=== PATIENT | male | born 1940 | race Caucasian/White ===

== ENCOUNTER → 2018-04-03 | Day surgery (SDC) | payer OTHER ==
[~2018-04-03] VITALS: Ht 175.3 cm; Wt 91.9 kg
[~2018-04-03] MED LIST: AMLO10TA2 PO; BACITRACIN TOP OINT 15 GM TUBE ONE; BENA5TAB PO; BUPIVACAINE HCL PF 0.5% 30 ML VIAL ONE; CHLORHEXIDINE GLUCONATE 2 % 1 PACK (2 CLOTHS) TOPICAL PRN; DO NOT ADM ANY ANTICOAGULANT DRUGS PRN; GLIP5TAB8 PO; HYDR12.57 PO; LACTATED RINGER'S 1000 ML IV PRN; LIDOCAINE HCL 1% PF 5 ML SYRINGE OTHER ONE; LIDOCAINE HCL 2% 20 ML VIAL ONE; METF500T PO; METOPROLOL TARTRATE 25 MG TAB PO PRN; MIDAZOLAM HCL 2 MG/2 ML VIAL ONE; NEOMYCIN/POLYMYXIN 1 ML G.U. IRRIGANT ONE; POVIDONE IODINE 5% (ANTISEPSIS KIT) 4 APPLICATIONS EACH NARE PRN; PROPOFOL 200 MG/20 ML AMP IV ONE; SITA1TAB2 PO; SODIUM CHLORID 0.9% 500 ML IV PRN; ceFAZolin 2 GM/DEX PREMIX 50 ML IV SCH; ePHEDrine/NS 25 MG/5 ML SYRINGE IV ONE; oxyCODONE/ACETAMINOPHEN 5 MG/325 MG TAB ONE; oxyCODONE/ACETAMINOPHEN 5 MG/325 MG TAB PO PRN
--- NOTE | 2018-04-03 10:39 | HHI.PR ---
Immediate Post Op Note Procedure Date: Apr 03, 2018 Pre Op Diagnosis: 1. bunion left foot 2. 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 hammer toe left 2nd with toe contracture Post Op Diagnosis: same Surgeon: Troy Putnam DPM Building Maintenance Mechanic(s): Staff Procedure: 1. lapidus bunionectomy 2. 1st MTP joint silastic implant arthroplasty 3. denae osteotomy left 2nd 4. hammer toe correction left 2nd Findings: Consistent with diagnosis. 1st Met-cuneiform joint located, resected, and intermetatarsal angle reduced and fixated with arthrex locking plate fixation. Trilliant silastic implant placed after 1st MTP joint resected and reduction confirmed with c-arm. Dorsal incision over 2nd MTP joint and shortening denae osteotomy performed and fixated with 12mm arthrex screw fixation. PIP joint resected from 2nd toe and 1.5mm trimit pin placed to reduce flexion contracture of digit. Reduction of all deformity and acceptable alignment of foot confirmed with c- arm imaging followed by irrigation and deep closure with 3-0 and 2-0 vicryl suture, followed by 2-0 nylon suture. Dressing with xeroform, 4x4, abd pads x 3, cast padding, and short posterior splint, well padded. Left calf tourniquet x 139 minutes @250mmHg 2g ancef IV preop Nonweightbearing left foot. Follow up 1 week for dressing change Keep dressing/splint clean, dry, intact. Additional Information: n/a Complications: none Specimen(s) removed: none Estimated blood loss: 50mL Anesthesia: General, Local (20mL 0.5% marcaine plain) Drains: None IVF Tourniquet time (min at mmHg) 139min @250mmHg left calf Patient to: PACU Patient Condition: Good Implant/Devices: SEE IMPLANT LOG (if applicable) Date/Time of Procedure: SEE SURGICAL CARE RECORD Troy Putnam DPM Apr 03, 2018 10:39
--- NOTE | 2018-04-03 12:28 | RADRPT ---
EXAM DATE: 04/03/2018 12:19 PM EDT AGE/SEX: 77 years / Male INDICATIONS: Post Left bunionectomy CLINICAL DATA: This is the patient's subsequent encounter. Patient reports that signs and symptoms h ave been present for 1 day and indicates a pain score of 0/10. MEDICAL/SURGICAL HISTORY: None. None. COMPARISON: No prior exams available for comparison. FINDINGS: There is a surgical plate along the dorsal medial aspect of the first metatarsal and medial cuneiform bone. There is a screw extending from the base of the first metatarsal into the medial cuneiform bon e. There is a prosthetic joint at the first MTP joint. There is a screw seen at the second metatarsal head. The patient does appear to be a cast. Calcaneal spurs are seen at the Achilles and plantar apo neurosis attachment sites. There is air in the soft tissues around the first digit which is a typical postoperative finding. CONCLUSION: Postsurgical change with hardware appearing well placed as described above. Electronically signed by: Melecio Douglass MD 04/03/2018 12:26 PM EDT
--- NOTE | 2018-04-03 12:29 | RADRPT ---
EXAM DATE: 04/03/2018 12:19 PM EDT AGE/SEX: 77 years / Male INDICATIONS: ORIF left foot with bunionectomy. CLINICAL DATA: This is the patient's initial encounter. Patient reports that signs and symptoms have been present for 1 day and indicates a pain score of Nonresponsive. MEDICAL/SURGICAL HISTORY: Non-responsive. Non-responsive. COMPARISON: No prior exams available for comparison. FINDINGS: 3 images from the OR have been submitted. There is a plate along the dorsal medial aspect of the midf oot extending from the medial cuneiform bone to the mid first metatarsal. There is a single screw ext ending from the base of the first metatarsal into the medial cuneiform bone. There appears to be a pr osthetic joint at the first MTP joint. There is a screw seen at the second metatarsal head. The hardw are all appears well placed. The first digit does appear well aligned. CONCLUSION: Successful placement of hardware as described above. Electronically signed by: Melecio Douglass MD 04/03/2018 12:28 PM EDT
[2018-04-03 12:30] VITALS: BP 126/68; PULSE 71; RESP 18; TEMP 97.5; O2SAT 95
== END | disposition home or self-care (01) ==
LOC: HSDC 06:01
PROVIDERS: ATTEND Podiatrist Foot & Ankle Surgery
DX: M20.42 Other hammer toe(s) (acquired), left foot (principal); M20.12 Hallux valgus (acquired), left foot; M21.612 Bunion of left foot; M19.072 Primary osteoarthritis, left ankle and foot; I10 Essential (primary) hypertension
CPT/HCPCS: 01480; 28270; 28285; 28297; 73630; 76000; C1713; J0690; J2250; J3010; J7120

== ENCOUNTER 2018-05-08 17:53 | Inpatient (IN) ==
--- NOTE | 2018-05-08 23:25 | ED ---
HPI General Chief Complaint: Recheck/Abnormal Lab/Rx Stated Complaint: Dr Navarrete/Tabby foot Cellulitis Time Seen by Provider: 05/08/18 22:53 Source: patient and old records reviewed History of Present Illness HPI Narrative: Patient is a akz-fdijezx-vbowcloqg diabetic hypertensive man who had a bunion surgery April [address] Putnam c architect. Patient saw Dr. lane today she thought that his foot looked like it was getting infected he had already been on a course of p.o. antibiotics and now she felt the foot was looking cellulitic tender red warm. She sent him to the ER with a note saying please admit to medicine podiatry consult get IV antibiotics CBC blood cultures. Patient is wearing a walking boot healing he has redness and tenderness to the left foot great toe and the second toe are red tender around the incision site. No pus expressed there is no smell of pus progressively getting worse over the last few weeks seen by his c architect today sent for inpatient IV antibiotics pain is localized red tender warmth is the complaint Related Data Home Medications Medication Instructions Recorded Confirmed amlodipine 5 mg PO DAILY 05/08/18 05/08/18 ascorbic acid (vitamin C) [Vitamin 500 mg PO DAILY 05/08/18 05/08/18 C] aspirin 81 mg PO DAILY 05/08/18 05/08/18 benazepril 40 mg PO DAILY 05/08/18 05/08/18 glipizide 10 mg PO HS 05/08/18 05/08/18 hydrochlorothiazide 25 mg PO DAILY 05/08/18 05/08/18 metformin 1,000 mg PO HS 05/08/18 05/08/18 metformin 500 mg PO DAILY 05/08/18 05/08/18 plant stanol rebecca [Cholest Off] 900 mg PO DAILY 05/08/18 05/08/18 ropinirole mg PO HS 05/08/18 sitagliptin [Januvia] 100 mg PO DAILY 05/08/18 05/08/18 tamsulosin 0.4 mg PO DAILY 05/08/18 05/08/18 Allergies Allergy/AdvReac Type Severity Reaction Status Date / Time amoxicillin Allergy Severe NOSE BLEED Verified 04/03/18 06:29 clavulanic acid Allergy Severe NOSE BLEED Verified 04/03/18 06:29 Jlasqjr-Ret-Ags Reductase Allergy Severe pain, Verified 04/03/18 06:29 Inhibitor muscle weakness Review of Systems ROS Unobtainable All other systems reviewed negative except as stated in [facility] Social History Social History Substance History: No History of Abuse Second Hand Smoke Exposure: No Smoking Status: Former smoker How Often Do You Have a Drink Containing Alcohol: Never Recent Travel in [facility] within the Last 8 Weeks: No Recent Out of Country Travel within the Last 8 Weeks: No Exam Narrative Exam Narrative: GENERAL: AWAKE ALERT WELL APPEARING SKIN: Focused skin assessment warm/dry. HEAD: Atraumatic. Normocephalic. EYES: Pupils equal and round. No scleral icterus. No injection or drainage. ENT: No nasal bleeding or discharge. Mucous membranes pink and moist. NECK: Trachea midline. No JVD. CARDIOVASCULAR: Regular rate and rhythm. No murmur appreciated. RESPIRATORY: No accessory muscle use. Clear to auscultation. Breath sounds equal bilaterally. GASTROINTESTINAL: Abdomen soft, non-tender, nondistended. Hepatic and splenic margins not palpable. MUSCULOSKELETAL: No obvious deformities. REDNESS AND SWELLING AROUND INCISION AREA GREAT TOE AND SECOND TOE LEFT FOOT NEUROLOGICAL: Awake and alert. No obvious cranial nerve deficits. Motor grossly within normal limits. Normal speech. PSYCHIATRIC: Appropriate mood and affect; insight and judgment normal. Course Initial Documented Vital Signs Temperature 98.6 F 05/08/18 18:44 Pulse Rate 83 05/08/18 18:44 Respiratory Rate 16 05/08/18 18:44 Blood Pressure 129/71 05/08/18 18:44 Pulse Oximetry 95 05/08/18 18:44 Last Documented Vital Signs Temperature 98.6 F 05/08/18 18:44 Pulse Rate 80 05/09/18 02:09 Respiratory Rate 16 05/09/18 02:09 Blood Pressure 144/90 H 05/09/18 02:09 Pulse Oximetry 97 05/09/18 02:09 Medical Decision Making Lab Data Result diagrams: 05/08/18 23:40 05/08/18 23:40 Lab Results 05/08/18 05/08/18 05/08/18 Range/Units 23:40 23:40 23:40 WBC 14.2 H (4.0-11.0) th/mm3 RBC 5.02 (4.50-5.90) mil/mm3 Hgb 16.3 (13.0-17.0) gm/dL Hct 47.5 (39.0-51.0) % MCV 94.7 (80.0-100.0) fL MCH 32.4 (27.0-34.0) pg MCHC 34.2 (32.0-36.0) % RDW 14.0 (11.6-17.2) % Plt Count 479 H (150-450) th/mm3 MPV 8.4 (7.0-11.0) fL Neut % (Auto) 55.6 (16.0-70.0) % Lymph % (Auto) 30.4 (9.0-44.0) % [place] % (Auto) 10.1 H (0.0-8.0) % Eos % (Auto) 2.9 (0.0-4.0) % Baso % (Auto) 1.0 (0.0-2.0) % Neut # (Auto) 7.9 H (1.8-7.7) th/mm3 Lymph # (Auto) 4.3 (1.0-4.8) th/mm3 [place] # (Auto) 1.4 H (0.0-0.9) th/mm3 Eos # (Auto) 0.4 (0.0-0.4) th/mm3 Baso # (Auto) 0.1 (0.0-0.2) th/mm3 WBC Differential . Differential Comment Auto diff final ESR 4 (0-20) mm/hr Sodium 140 (136-145) meq/L Potassium 3.2 L (3.5-5.1) meq/L Chloride 100 (98-107) meq/L Carbon Dioxide 28.8 (21.0-32.0) meq/L Anion Gap 11 (5-15) meq/L BUN 18 (7-18) mg/dL Creatinine 1.35 H (0.60-1.30) mg/dL Estimated GFR 51 L (>89) mL/min Random Glucose 116 H (74-106) mg/dL Calcium 9.2 (8.5-10.1) mg/dL Total Bilirubin 1.1 H (0.2-1.0) mg/dL AST 15 (15-37) U/L ALT 24 (12-78) U/L Alkaline Phosphatase 50 (45-117) U/L C-Reactive Protein 0.40 H (0.00-0.30) mg/dL Total Protein 8.0 (6.4-8.2) g/dL Albumin 4.2 (3.4-5.0) g/dL Imaging Data Radiologist's impression: ITS Impressions Foot X-Ray 05/08/18 23:57 CONCLUSION: Postsurgical changes. No fracture Discharge Plan Discharge Disposition Patient Disposition: 30 Still Patient Discharge Details Diagnosis: Cellulitis of left foot Physicians Team ED Provider: Papo Akers Primary Care Provider: Colleen Dumont Attending Provider: Guerda Valente Other Providers: Brian Menendez Status ED Status: Admitted Patient
[2018-05-08 23:54] LABS: Baso # (Auto) 0.1 th/mm3 (0.0-0.2); Eos # (Auto) 0.4 th/mm3 (0.0-0.4); Eos % (Auto) 2.9 % (0.0-4.0); Hematocrit 47.5 % (39.0-51.0); Hemoglobin 16.3 gm/dL (13.0-17.0); Lymph # (Auto) 4.3 th/mm3 (1.0-4.8); Lymph % (Auto) 30.4 % (9.0-44.0); Mean Corpuscular HGB Conc 34.2 % (32.0-36.0); Mean Corpuscular Hemoglobin 32.4 pg (27.0-34.0); Mean Corpuscular Volume 94.7 fL (80.0-100.0); Mean Platelet Volume 8.4 fL (7.0-11.0); Mono # (Auto) 1.4 th/mm3 (0.0-0.9); Mono % (Auto) 10.1 % (0.0-8.0); Neut # (Auto) 7.9 th/mm3 (1.8-7.7); Neut % (Auto) 55.6 % (16.0-70.0); Platelet Count 479 th/mm3 (150-450); Red Blood Count 5.02 mil/mm3 (4.50-5.90); White Blood Count 14.2 th/mm3 (4.0-11.0)
[2018-05-09 00:25] LABS: Alanine Aminotransferase 24 U/L (12-78); Albumin 4.2 g/dL (3.4-5.0); Anion Gap 11 meq/L (5-15); Aspartate Aminotransferase 15 U/L (15-37); Blood Urea Nitrogen 18 mg/dL (7-18); Calcium 9.2 mg/dL (8.5-10.1); Carbon Dioxide 28.8 meq/L (21.0-32.0); Chloride 100 meq/L (98-107); Glomerular Filtration Rate 51 mL/min (>89); Glucose,Random 116 mg/dL (74-106); Potassium 3.2 meq/L (3.5-5.1); Sodium 140 meq/L (136-145)
[2018-05-09 00:27] LABS: Alkaline Phosphatase 50 U/L (45-117)
[2018-05-09] MEDS ORDERED: Acetaminophen 325 MG Tablet PO PRN (00:54)
[2018-05-09] MEDS ORDERED: Bisacodyl 10 MG Supp RECTAL PRN (00:54)
[2018-05-09] MEDS ORDERED: Dextrose 50% in Water 50 ML Vial IV.PUSH PRN (00:54)
[2018-05-09] MEDS ORDERED: Temazepam 15 MG Capsule PO PRN (00:54)
--- NOTE | 2018-05-09 01:01 | XR ---
EXAM DATE: 05/09/2018 12:31 AM EDT AGE/SEX: 77 years / Male INDICATIONS: Left foot inflammation post surgery. CLINICAL DATA: This is the patient's initial encounter. Patient reports that signs and symptoms have been present for 1 day and indicates a pain score of 5/10. MEDICAL/SURGICAL HISTORY: . Diabetes. . ORIF left foot. COMPARISON: [facility] [place], FOOT LEFT COMPLETE ([id number]), 04/03/2018. . FINDINGS: Views left foot obtained. Plate and screws along the first metatarsal. Metallic densities along the j oint of the first metatarsal phalangeal joint. There is a screw along the second metatarsal head fixa ting old fracture. Small plantar calcaneal spur. No hardware loosening or new fracture. CONCLUSION: Postsurgical changes. No fracture Electronically signed by: Ernst Aguilera MD 05/09/2018 12:59 AM EDT
[2018-05-09] MEDS: Sod Chloride 0.9% Inj 1,000 ML IV.CONT SCH ×3 (01:29→22:20)
[2018-05-09] MEDS ORDERED: Morphine Inj 4 MG/ML Vial IV.PUSH PRN (01:45)
[2018-05-09] MEDS ORDERED: Vancomycin Consult Pharmacy 1 EACH OTHER SCH (02:00)
--- NOTE | 2018-05-09 02:00 | P.HPIM ---
History of Present Illness Primary Care Physician: Colleen Dumont MD History of Present Illness: This is a 77-year-old male with a PMH of HTN and DM who was referred to the ER by his Teacher Physically Impaired, Dr. Putnam for admission due to postop left foot infection. Pt underwent Bunionectomy 04/03/18, states he has been on multiple antibiotic regimens since surgery for wound infection w/ minimal improvement, was referred to the ER for admission and IV Abx. Reports pain to left foot, worse w/ walking or wearing boot, pain is intermittent, moderate to severe, 8/10 , non-radiating. Denies fever or chills. On arrival, BP 129/71, HR 83, O2 sat 95% on RA, Afebrile. WBC 14.2. K+ 3.2. Creatinine 1.35, no previous labs for comparison. Foot X-ray with postsurgical changes, no acute fracture. - Diagnosis (1) Left foot infection (2) DM (diabetes mellitus) (3) Renal insufficiency Inpatient Certification: I certify that the inpatient services were ordered in accordance with Medicare regulations governing the order. This includes certification that hospital inpatient services are reasonable and necessary and in the case of services not specified as inpatient-only under 42 CFR 419.22(n), that they are appropriately provided as inpatient services in accordance to with the 2-midnight benchmark under 43 CFR 412.3(e) Estimated Total Length of Stay (Days): 2 Plans for Post Hospital Care: Not yet determined Review of Systems All other systems reviewed negative except as stated in HPI PMFSH - History History Provided By: Patient - Tobacco History Second Hand Smoke Exposure: No Tobacco Use In Past 30 Days: No Smoking Status: Former smoker - Alcohol History How Often Do You Have a Drink Containing Alcohol: Never - Substance Use History Substance History: No History of Abuse - Travel History Recent Travel in the [place] Within the Last 8 Weeks: No Recent Travel Out of the Country Within the Last 8 Weeks: No - Immunization History Tetanus Immunization: Unsure Hx Influenza Vaccine This Season: Yes Medications and Allergies Active Medications: Active Medications Acetaminophen (Tylenol) 650 mg PO Q4H PRN PRN Reason: FEVER/PAIN 1-2 Hydrocodone Bitart/Acetaminophen ([place] 5/325) 1 tab PO Q4H PRN PRN Reason: PAIN 3-5 Al Hydroxide/Mg Hydroxide (Milk Of Magnromero Liq) 30 ml PO Q12H PRN PRN Reason: Mild Constipation Amlodipine Besylate (Norvasc) 5 mg PO DAILY [facility] Ascorbic Acid (Vitamin C) 500 mg PO DAILY [facility] Bisacodyl (Dulcolax Supp) 10 mg RECTAL DAILY PRN PRN Reason: SEVERE CONSITIPATION Dextrose (D50w Vial) 50 ml IV.PUSH UNSCH PRN PRN Reason: PER HYPOGLYCEMIA PROTOCOL Glipizide (Glucotrol) 10 mg PO HS [facility] Glucagon (Glucagon Inj) 1 mg OTHER PRN PRN PRN Reason: for Hypoglycemia Protocol Sodium Chloride (Ns Inj) 1,000 mls @ 100 mls/hr IV.CONT .Q10H [facility] Last Admin: 05/09/18 01:29 Dose: 100 mls/hr Insulin Aspart (Novolog Insulin Suppl Scale Inj) 0 unit SQ ACHS [facility]; Protocol Lactulose (Lactulose Liq) 30 ml PO DAILY PRN PRN Reason: SEVERE CONSITIPATION Lisinopril (Prinivil) 40 mg PO DAILY [facility] Metoclopramide HCl (Reglan Inj) 5 mg IV.PUSH Q6HR PRN; Protocol PRN Reason: NAUSEA OR VOMITING Morphine Sulfate (Morphine Inj) 2 mg IV.PUSH Q4H PRN PRN Reason: PAIN 6-10 Senna/Docusate Sodium (Cary-Colace) 1 tab PO BID [facility] Sennosides (Senokot) 17.2 mg PO Q12H PRN PRN Reason: Moderate Constipation Sodium Chloride (Ns Flush) 2 ml IV.FLUSH BID [facility] Sodium Chloride (Ns Flush) 2 ml IV.FLUSH PRN PRN PRN Reason: FLUSH AFTER USING IV ACCESS Tamsulosin HCl (Flomax) 0.4 mg PO DAILY [facility] Temazepam (Restoril) 15 mg PO HS PRN PRN Reason: INSOMNIA Allergies Allergy/AdvReac Type Severity Reaction Status Date / Time amoxicillin Allergy Severe NOSE BLEED Verified 04/03/18 06:29 clavulanic acid Allergy Severe NOSE BLEED Verified 04/03/18 06:29 Gzdzfay-Gom-Byy Reductase Allergy Severe pain, Verified 04/03/18 06:29 Inhibitor muscle weakness Home Medications Medication Instructions Recorded Confirmed Type amlodipine 5 mg PO DAILY 05/08/18 05/08/18 History ascorbic acid (vitamin C) [Vitamin 500 mg PO DAILY 05/08/18 05/08/18 History C] aspirin 81 mg PO DAILY 05/08/18 05/08/18 History benazepril 40 mg PO DAILY 05/08/18 05/08/18 History glipizide 10 mg PO HS 05/08/18 05/08/18 History hydrochlorothiazide 25 mg PO DAILY 05/08/18 05/08/18 History metformin 1,000 mg PO HS 05/08/18 05/08/18 History metformin 500 mg PO DAILY 05/08/18 05/08/18 History plant stanol rebecca [Cholest Off] 900 mg PO DAILY 05/08/18 05/08/18 History ropinirole mg PO HS 05/08/18 History sitagliptin [Januvia] 100 mg PO DAILY 05/08/18 05/08/18 History tamsulosin 0.4 mg PO DAILY 05/08/18 05/08/18 History Exam Vital signs: Vital Signs 05/08/18 18:44 05/08/18 23:49 Temperature 98.6 F Pulse Rate 83 65 Respiratory Rate 16 16 Blood Pressure 129/71 121/73 Pulse Oximetry 95 95 Intake & Output 05/08/18 05/08/18 05/09/18 06:59 18:59 06:59 Weight 88.451 kg Narrative: PE: GENERAL: Pleasant elderly white male in no acute distress. at bedside. HEENT: PERRLA, EOMI. No scleral icterus or conjunctival pallor. No lid lag or facial droop. CARDIOVASCULAR: Regular rate and rhythm. No obvious murmurs to auscultation. No chest tenderness to palpation. RESPIRATORY: No obvious rhonchi or wheezing. Clear to auscultation. Breath sounds equal bilaterally. GASTROINTESTINAL: Abdomen soft, non-tender, nondistended. BS normal. MUSCULOSKELETAL: Extremities without clubbing, cyanosis, or edema. No obvious deformities. Left foot with bandage, redness/swelling to left great toe/2nd toe. NEUROLOGICAL: Awake, alert and oriented x4. No focal neurologic deficits. Moving both upper and lower extremities spontaneously. Results - Labs CBC & Chem 7: 05/08/18 23:40 05/08/18 23:40 Labs: Short CBC 05/08/18 Range/Units 23:40 WBC 14.2 H (4.0-11.0) th/mm3 Hgb 16.3 (13.0-17.0) gm/dL Hct 47.5 (39.0-51.0) % Plt Count 479 H (150-450) th/mm3 BMP 05/08/18 23:40 Sodium 140 Potassium 3.2 L Chloride 100 Carbon Dioxide 28.8 BUN 18 Creatinine 1.35 H Calcium 9.2 Liver Function 05/08/18 Range/Units 23:40 Total Bilirubin 1.1 H (0.2-1.0) mg/dL AST 15 (15-37) U/L ALT 24 (12-78) U/L Alkaline Phosphatase 50 (45-117) U/L Albumin 4.2 (3.4-5.0) g/dL - Imaging Impressions Foot X-Ray 05/08/18 23:57 CONCLUSION: Postsurgical changes. No fracture Caprini VTE Risk Assessment Caprini VTE Risk Assessment: Moderate/High Risk (score >= 2) VTE Mechanical Exception: LE injury/wound Caprini Risk Assessment Model: Point Value = 1 Point Value = 2 Point Value = 3 Point Value = 5 Age 41-60 Minor surgery BMI > 25 kg/m2 Swollen legs Varicose veins or History of unexplained or recurrent spontaneous Oral contraceptives or hormone replacement Sepsis (< 1 month) Serious lung disease, including pneumonia (< 1 month) Abnormal pulmonary function Acute myocardial infarction Congestive heart failure (< 1 month) History of inflammatory bowel disease Medical patient at bed rest Age 61-74 Arthroscopic surgery Major open surgery (> 45 min) Laparoscopic surgery (> 45 min) Malignancy Confined to bed (> 72 hours) Immobilizing plaster cast Central venous access Age >= 75 History of VTE Family history of VTE Factor V Leiden Prothrombin [id number] Lupus anticoagulant Anticardiolipin antibodies Elevated serum homocysteine Heparin-induced thrombocytopenia Other congenital or acquired thrombophilia Stroke (< 1 month) Elective arthroplasty Hip, pelvis, or leg fracture Acute spinal cord injury (< 1 month) Prophylaxis Regimen: Total Risk Factor Score Risk Level Prophylaxis Regimen 0-1 Low Early ambulation 2 Moderate Order ONE of the following: *Sequential Compression Device (SCD) *Heparin 5000 units SQ BID 3-4 Higher Order ONE of the following medications: *Heparin 5000 units SQ TID *Enoxaparin/Lovenox 40 mg SQ daily (WT < 150 kg, CrCl > 30 mL/min) *Enoxaparin/Lovenox 30 mg SQ daily (WT < 150 kg, CrCl > 10-29 mL/min) *Enoxaparin/Lovenox 30 mg SQ BID (WT < 150 kg, CrCl > 30 mL/min) AND/OR *Sequential Compression Device (SCD) 5 or more Highest Order ONE of the following medications: *Heparin 5000 units SQ TID (Preferred with Epidurals) *Enoxaparin/Lovenox 40 mg SQ daily (WT < 150 kg, CrCl > 30 mL/min) *Enoxaparin/Lovenox 30 mg SQ daily (WT < 150 kg, CrCl > 10-29 mL/min) *Enoxaparin/Lovenox 30 mg SQ BID (WT < 150 kg, CrCl > 30 mL/min) AND *Sequential Compression Device (SCD) Assessment and Plan - Assessment (1) Left foot infection Code(s): L08.9 - Local infection of the skin and subcutaneous tissue, unspecified Status: Acute (2) DM (diabetes mellitus) Code(s): E11.9 - Type 2 diabetes mellitus without complications Status: Acute (3) Renal insufficiency Code(s): N28.9 - Disorder of kidney and ureter, unspecified Status: Acute - Plan A/P: 1. Left Foot Infection: s/p Left Bunionectomy 04/03/[address] Putnam, w/ ongoing infection, failed outpatient tx on multiple antibiotics, WBC 11, sent to ER by Dr. Putnam for admission, IV Abx, start IV Vanc/Azactam, NPO for possible surgical intervention, analgesics/antiemetics as needed. Repeat labs in am. 2. DM: Sliding scale w/ Accu-Cheks, hold Metformin for now. 3. Renal Insufficiency: Creatinine 1.35, no previous labs for comparison, monitor I/O, IVF for hydration, repeat labs in am. 4. DVT Prophylaxis: Mechanical contraindication due to wound 5. Social work for d/c planning as needed 6. Case discussed w/ ER physician at length, labs/records/imaging reviewed by me.
[2018-05-09] MEDS ORDERED: Vancomycin Inj 1,500 MG in Sodium Chlor 0.9% Inj 500 ML IV.SIG ONE (02:30)
[2018-05-09] MEDS: Aztreonam Inj 2 GM in Sodium Chloride 0.9% Inj 100 ML IV.SIG SCH ×3 (02:43→22:05)
[2018-05-09] MEDS: Insulin NovoLOG Aspart Correctional Sugar Inj SQ SCH ×3 (08:16→21:54)
--- NOTE | 2018-05-09 09:01 | P.PNIM ---
Subjective Interval history: Reports no significant pain. Dr. Griffiths came in and saw him this morning. Wants to eat breakfast and take his morning medications. No other concerns at this time. No fevers or chills overnight. Physical Exam Vital signs: Vital Signs 05/08/18 18:44 05/08/18 23:49 05/09/18 02:09 Temperature 98.6 F Pulse Rate 83 65 80 Respiratory Rate 16 16 16 Blood Pressure 129/71 121/73 144/90 H Pulse Oximetry 95 95 97 05/09/18 05:52 05/09/18 07:00 Temperature Pulse Rate 85 82 Respiratory Rate 16 19 Blood Pressure 116/72 140/75 Pulse Oximetry 96 97 Intake & Output 05/08/18 05/09/18 05/09/18 18:59 06:59 18:59 Intake Total 615 / 615 Balance 615 / 615 Weight 88.451 kg Intake: IV 615 / 615 Azactam Inj 2 GM In NS Inj 100 100 / 100 ML @ 200 mls/hr IV.SIG Q8H RUBEN Rx#:[id number] Vancomycin Inj 1,500 MG In NS 515 / 515 Inj 500 ML @ 257.5 mls/hr IV. SIG ONCE ONE Rx#:[id number] Narrative: GENERAL: This is a well-nourished, well-developed patient, in no apparent distress. CARDIOVASCULAR: Regular rate and rhythm RESPIRATORY: Clear to auscultation. Breath sounds equal bilaterally. No wheezes , rales, or rhonchi. GASTROINTESTINAL: Abdomen soft, non-tender, nondistended. Normal active bowel sounds MUSCULOSKELETAL: Left foot small 2 cm x 3 cm open wound over surgical bunion area 2 cm x 2 cm wound along with second metatarsal with no active drainage, no significant erythema seen. NEURO: Alert & Oriented x4 to person, place, time, situation. Moves all ext x4 Results - Labs CBC & Chem 7: 05/08/18 23:40 05/08/18 23:40 Laboratory Results - last 24 hr 05/08/18 05/08/18 05/08/18 23:40 23:40 23:40 WBC 14.2 H RBC 5.02 Hgb 16.3 Hct 47.5 MCV 94.7 MCH 32.4 MCHC 34.2 RDW 14.0 Plt Count 479 H MPV 8.4 Neut % (Auto) 55.6 Lymph % (Auto) 30.4 [place] % (Auto) 10.1 H Eos % (Auto) 2.9 Baso % (Auto) 1.0 Neut # (Auto) 7.9 H Lymph # (Auto) 4.3 [place] # (Auto) 1.4 H Eos # (Auto) 0.4 Baso # (Auto) 0.1 WBC Differential . Differential Comment Auto diff final ESR 4 Sodium 140 Potassium 3.2 L Chloride 100 Carbon Dioxide 28.8 Anion Gap 11 BUN 18 Creatinine 1.35 H Estimated GFR 51 L POC Glucose Random Glucose 116 H Calcium 9.2 Total Bilirubin 1.1 H AST 15 ALT 24 Alkaline Phosphatase 50 C-Reactive Protein 0.40 H Total Protein 8.0 Albumin 4.2 05/09/18 08:05 WBC RBC Hgb Hct MCV MCH MCHC RDW Plt Count MPV Neut % (Auto) Lymph % (Auto) [place] % (Auto) Eos % (Auto) Baso % (Auto) Neut # (Auto) Lymph # (Auto) [place] # (Auto) Eos # (Auto) Baso # (Auto) WBC Differential Differential Comment ESR Sodium Potassium Chloride Carbon Dioxide Anion Gap BUN Creatinine Estimated GFR POC Glucose 177 H Random Glucose Calcium Total Bilirubin AST ALT Alkaline Phosphatase C-Reactive Protein Total Protein Albumin - Imaging Impressions Foot X-Ray 05/08/18 23:57 CONCLUSION: Postsurgical changes. No fracture Assessment and Plan - Assessment (1) Left foot infection Code(s): L08.9 - Local infection of the skin and subcutaneous tissue, unspecified Status: Acute (2) DM (diabetes mellitus) Code(s): E11.9 - Type 2 diabetes mellitus without complications Status: Acute (3) Renal insufficiency Code(s): N28.9 - Disorder of kidney and ureter, unspecified Status: Acute - Plan 1. Left Foot Infection: s/p Left Bunionectomy 04/03/[address] Putnam, w/ ongoing infection, failed outpatient tx on multiple antibiotics, sent to ER by Dr. Putnam for admission, continue with IV Abx, start IV Vanco/Azactam, seen by Dr. Griffiths who will hold off on surgical intervention at this time and follow the patient clinically for next 48 hours on IV antibiotics. Follow-up with wound and blood cultures. Restart diet today. 2. DM type II with diabetic foot infection: Sliding scale w/ Accu-Cheks, hold Metformin for now. 3. Renal Insufficiency with suspecting chronic kidney disease stage III: Creatinine 1.35, no previous labs for comparison, monitor I/O, IVF for hydration , repeat labs in am. 4. DVT Prophylaxis: Lovenox (2) DM (diabetes mellitus) Qualifiers: Diabetes mellitus type: type 2 Diabetes mellitus half-way insulin use: without half-way use Diabetes mellitus complication status: with skin complications Diabetes mellitus complication detail: with foot ulcer Qualified Code(s): E11.621 - Type 2 diabetes mellitus with foot ulcer; L97.509 - Non-pressure chronic ulcer of other part of unspecified foot with unspecified severity
[2018-05-09] MEDS: Lisinopril 20 MG Tablet PO SCH (10:41)
[2018-05-09] MEDS: hydroCHLOROthiazide 25 MG Tablet PO SCH (10:43)
[2018-05-09] MEDS: amLODIPine 5 MG Tablet PO SCH (10:43)
[2018-05-09] MEDS: Ascorbic Acid 500 MG Tablet PO SCH (10:45)
[2018-05-09] MEDS: Senna/Docusate Sodium 8.6/50 MG Tablet PO SCH ×2 (10:52→22:03)
[2018-05-09] MEDS: Enoxaparin Inj 40 MG/0.4 ML Syringe SQ SCH (10:52)
--- NOTE | 2018-05-09 13:57 | MB ---
cc: Marvin Diaz MD DATE: 05/09/2018 REQUESTING PHYSICIAN: Dr. Griffiths. REASON: Infection in postoperative period. HISTORY OF PRESENT ILLNESS: This is a 77-year-old white male who is status post foot reconstruction on 05/02/2018. The patient was recuperating from the surgery and wearing a boot on the left leg where the surgery was performed. He developed some redness on the left foot and he was given antibiotics by mouth and did not improve. He received a second round of antibiotic by mouth and again did not improve and he was evaluated by the commissary assistant and sent for evaluation at the emergency department and IV antibiotics. The patient has no complaints besides some pain in the left foot. He has no nausea, vomiting, fever, chills, or other complaints. He is awake and alert and oriented. The temperature is normal. White blood cell count is elevated at 14.2. An x-ray of the foot was performed and it shows postsurgical changes without fracture. The patient has a plate and screws along the first metatarsal and phalangeal joint and also there is a screw along the second metatarsal head. No hardware loosening was noted. PAST MEDICAL HISTORY: Diabetes mellitus, hypertension, otherwise unremarkable prior to procedure. ALLERGIES: AMOXICILLIN, CLAVULANIC ACID, STATINS, HMG-COA REDUCTASE INHIBITOR. MEDICATIONS: 1. Norvasc. 2. Vitamin C. 3. Aspirin. 4. Lovenox. 5. Hydrochlorothiazide. 6. Prinivil. 7. [place]-Colace. 8. Januvia. 9. Flomax. 10. Restoril SOCIAL HISTORY: No tobacco. No alcohol use. No illicit drugs. FAMILY HISTORY: Noncontributory. REVIEW OF REVIEW OF SYSTEMS: All systems have been reviewed and are negative. PHYSICAL EXAMINATION: GENERAL: Well-developed male who is in no acute distress. He is awake and alert and oriented. VITAL SIGNS: Temperature is 98.6, BP 138/81, respirations 16, heart rate 81. HEENT: Head is atraumatic. Extraocular movements grossly intact. Pupils reactive to light. No icterus. No conjunctival erythema. Oropharynx: Mucosa moist. No thrush. No visible lesions. NECK: Supple. No adenopathy. No swelling. LUNGS: Clear to auscultation. HEART: Regular S1 and S2. No audible murmurs. ABDOMEN: Bowel sounds present. Soft, nontender. RECTAL: Not performed. EXTREMITIES: The left foot has erythema from the base of the toes to about mid-foot at the dorsal aspect. The second toe has a dry ulcer crater at the dorsum and the dorsum of the second toe has erythema. Positive warmth. No drainage visible. There are 2 superficial ulcerations at the dorsum of the foot, along the base of the great toe backwards, approximately 2 inches long and another small ulcer approximately 1/2-inch back beyond the second toe. SKIN: No diffuse rash. NEUROLOGIC: No gross focal finding. PSYCHIATRIC: Patient is calm and cooperative. LABORATORY DATA: WBC 14.2, platelets 479, 55% neutrophils, 30% lymphocytes, 10% monocytes, 2% eosinophils, hemoglobin 16.3. Creatinine 1.35, BUN 18, sodium 140. AST 15, ALT 24. Blood cultures: No growth. Wound culture pending. IMPRESSION: 1. Cellulitis of the left foot. 2. Postoperative infection of the left foot. The patient is status post reconstructive surgery on the left foot and appears to have a wound infection. RECOMMENDATIONS: 1. Continue aztreonam. 2. Periodic vancomycin rhythmic. 3. Continue to hold periodic vancomycin while awaiting the cultures to determine whether or not to continue. 5. Monitor response to the antibiotic treatment and antibiotic adjustments depending on the culture results. Thank you for this consultation. I will follow the patient's progress with you and make further recommendations and followup if necessary. MD SILVANA Victor/RENEE , 01:21 PM , 01:55 PM WENDY
--- NOTE | 2018-05-09 19:20 | MB ---
cc: Brian GriffithsM TundeBrian Mccarty DPM DATE: 05/09/2018 REASON FOR CONSULTATION: Postoperative infection, possible osteomyelitis with abscess. HISTORY OF PRESENT ILLNESS: This is a pleasant 77-year-old male who is status post foot surgery per Dr. Flor Putnam. The patient had left foot surgery within the past 3-4 weeks, apparently had intermittent bouts of cellulitis and a significant decline of presentation of the surgical site. A debridement took place in the office and the patient was sent to the hospital for IV antibiotics with no obvious plan of removal of hardware at this point, given it is too early on in the postop period PAST MEDICAL HISTORY: Positive for diabetes, renal insufficiency, left foot infection in postoperative period. The patient is a former smoker. Denies alcohol. OUTPATIENT MEDICATIONS: Reviewed. INPATIENT MEDICATIONS: He is receiving antibiotic Vancomycin. ALLERGIES: AMOXICILLIN, CLAVULANIC ACID, STATIN, HMG-COA REDUCTASE INHIBITORS. PHYSICAL EXAMINATION: VITAL SIGNS: Temperature 98.3, pulse rate 76, respiratory rate 16, blood pressure 113/78. He is satting 96% on room air. GENERAL: This is an alert and oriented gentleman seen at bedside exhibiting nonlabored respirations. He is verbal, appropriate. Left lower extremity is examined. Pulses are palpable. Sensation decreased to light touch. There is noted to be a linear mixed fibrotic granular incision over the dorsal aspect of the second digit and first digit and first ray. There is minimal to moderate erythema that appears to be localized to the mathew-incision area. There is no fluctuance, no crepitus or instability. There is no gas within the tissue. There is good capillary refill time to the digits, right foot is free from any obvious ulceration. LABORATORY DATA: White blood cell 14.2, hemoglobin and hematocrit, 16/42, platelet count is 479. Chem-7: Sodium 140, 3.2, chloride 100, CO2 of 28.8. BUN is 18, creatinine 1.35, random glucose is 116. IMAGING STUDIES: X-rays reviewed: Intact first MPJ implant and plate and screw traversing the first metatarsal medial cuneiform joint. There is also a screw intact at the second metatarsal head. These are consistent with postsurgical changes. There is no obvious bony erosive process. ASSESSMENT AND PLAN: Left foot cellulitis postsurgical complication, possible infected hardware. A culture was taken. A Betadine swab to the wound edge. We will await clinical improvement and IV antibiotics as well as infectious disease consultation. At this time, it is not recommended to remove the hardware for it would severely compromise the surgery. Recommendation would be long-term IV antibiotics first. I communicated all of this with the patient's surgeon, Dr. Putnam, as I am covering her for she is going out of town. I will continue to advise. No plans for surgery at this point. RUBÉN Gresham/ , 06:56 PM , 07:19 PM
[2018-05-09] MEDS: glipiZIDE 10 MG Tablet PO SCH (22:19)
[2018-05-10] MEDS: Aztreonam Inj 2 GM in Sodium Chloride 0.9% Inj 100 ML IV.SIG SCH ×3 (03:13→22:12)
[2018-05-10] MEDS: Vancomycin Inj 1,500 MG in Sodium Chlor 0.9% Inj 500 ML IV.SIG SCH (03:13)
[2018-05-10 05:13] LABS: Baso # (Auto) 0.1 th/mm3 (0.0-0.2); Baso % (Auto) 0.9 % (0.0-2.0); Eos # (Auto) 0.6 th/mm3 (0.0-0.4); Eos % (Auto) 4.8 % (0.0-4.0); Hematocrit 46.4 % (39.0-51.0); Hemoglobin 15.5 gm/dL (13.0-17.0); Lymph # (Auto) 3.4 th/mm3 (1.0-4.8); Lymph % (Auto) 28.1 % (9.0-44.0); Mean Corpuscular HGB Conc 33.5 % (32.0-36.0); Mean Corpuscular Hemoglobin 32.6 pg (27.0-34.0); Mean Corpuscular Volume 97.2 fL (80.0-100.0); Mean Platelet Volume 8.7 fL (7.0-11.0); Mono # (Auto) 1.5 th/mm3 (0.0-0.9); Mono % (Auto) 12.3 % (0.0-8.0); Neut # (Auto) 6.6 th/mm3 (1.8-7.7); Neut % (Auto) 53.9 % (16.0-70.0); Platelet Count 468 th/mm3 (150-450); Red Blood Count 4.77 mil/mm3 (4.50-5.90); Red Cell Distribution Width 14.2 % (11.6-17.2); White Blood Count 12.2 th/mm3 (4.0-11.0)
[2018-05-10 06:19] LABS: Alanine Aminotransferase 20 U/L (12-78); Albumin 3.2 g/dL (3.4-5.0); Alkaline Phosphatase 42 U/L (45-117); Anion Gap 11 meq/L (5-15); Aspartate Aminotransferase 15 U/L (15-37); Blood Urea Nitrogen 14 mg/dL (7-18); Calcium 8.6 mg/dL (8.5-10.1); Carbon Dioxide 29.4 meq/L (21.0-32.0); Chloride 104 meq/L (98-107); Glomerular Filtration Rate 54 mL/min (>89); Glucose,Random 99 mg/dL (74-106); Potassium 3.2 meq/L (3.5-5.1); Sodium 144 meq/L (136-145); Total Protein 6.7 g/dL (6.4-8.2)
[2018-05-10] MEDS: hydroCHLOROthiazide 25 MG Tablet PO SCH (09:47)
[2018-05-10] MEDS: amLODIPine 5 MG Tablet PO SCH (09:47)
[2018-05-10] MEDS: Lisinopril 20 MG Tablet PO SCH (09:47)
[2018-05-10] MEDS: Ascorbic Acid 500 MG Tablet PO SCH (09:48)
[2018-05-10] MEDS: Senna/Docusate Sodium 8.6/50 MG Tablet PO SCH ×3 (09:48→22:03)
--- NOTE | 2018-05-10 10:47 | P.PNIM ---
Subjective Interval history: Reports that there is no pain. He is declining Lovenox due to him ambulating in the room. No other concerns at this time. Physical Exam Vital signs: Vital Signs 05/09/18 15:30 05/09/18 20:00 05/10/18 00:00 Temperature 98.3 F 98.1 F 98.0 F Pulse Rate 76 83 63 Respiratory Rate 16 21 18 Blood Pressure 113/78 128/83 122/77 Pulse Oximetry 96 96 96 05/10/18 04:00 05/10/18 08:00 Temperature 98.0 F 97.9 F Pulse Rate 70 73 Respiratory Rate 20 18 Blood Pressure 119/62 130/81 Pulse Oximetry 96 97 Intake & Output 05/09/18 05/10/18 05/10/18 18:59 06:59 18:59 Intake Total 1676 / 1676 2400 / 2400 Output Total 800 / 800 Balance 1676 / 1676 1600 / 1600 Weight 88.45 kg Intake: IV 1100 / 1100 1200 / 1200 NS Inj 1,000 ML @ 100 mls/hr IV 1000 / 1000 1000 / 1000 .CONT .Q10H RUBEN Rx#:[id number] Azactam Inj 2 GM In NS Inj 100 100 / 100 200 / 200 ML @ 200 mls/hr IV.SIG Q8H RUBEN Rx#:[id number] Oral 576 / 576 1200 / 1200 Output: Urine 800 / 800 Other: # Voids 5 Date of Last Bowel Movement 05/09/18 # Bowel Movements 2 Weight On Admission 88.45 kg Narrative: GENERAL: This is a well-nourished, well-developed patient, in no apparent distress. CARDIOVASCULAR: Regular rate and rhythm RESPIRATORY: Clear to auscultation. Breath sounds equal bilaterally. No wheezes , rales, or rhonchi. GASTROINTESTINAL: Abdomen soft, non-tender, nondistended. Normal active bowel sounds MUSCULOSKELETAL: Left foot surgical scar wound over surgical bunion area 2 cm x 2 cm wound along with second metatarsal with no active drainage, no significant erythema seen, clinically improving. NEURO: Alert & Oriented x4 to person, place, time, situation. Moves all ext x4 Results - Labs CBC & Chem 7: 05/10/18 03:49 05/10/18 03:49 Laboratory Results - last 24 hr 05/09/18 05/09/18 05/10/18 15:28 21:52 03:49 WBC 12.2 H RBC 4.77 Hgb 15.5 Hct 46.4 MCV 97.2 MCH 32.6 MCHC 33.5 RDW 14.2 Plt Count 468 H MPV 8.7 Neut % (Auto) 53.9 Lymph % (Auto) 28.1 [place] % (Auto) 12.3 H Eos % (Auto) 4.8 H Baso % (Auto) 0.9 Neut # (Auto) 6.6 Lymph # (Auto) 3.4 [place] # (Auto) 1.5 H Eos # (Auto) 0.6 H Baso # (Auto) 0.1 WBC Differential . Differential Comment Auto diff final Sodium Potassium Chloride Carbon Dioxide Anion Gap BUN Creatinine Estimated GFR POC Glucose 125 H 166 H Random Glucose Calcium Total Bilirubin AST ALT Alkaline Phosphatase Total Protein Albumin 05/10/18 03:49 WBC RBC Hgb Hct MCV MCH MCHC RDW Plt Count MPV Neut % (Auto) Lymph % (Auto) [place] % (Auto) Eos % (Auto) Baso % (Auto) Neut # (Auto) Lymph # (Auto) [place] # (Auto) Eos # (Auto) Baso # (Auto) WBC Differential Differential Comment Sodium 144 Potassium 3.2 L Chloride 104 Carbon Dioxide 29.4 Anion Gap 11 BUN 14 Creatinine 1.30 Estimated GFR 54 L POC Glucose Random Glucose 99 Calcium 8.6 Total Bilirubin 0.8 AST 15 ALT 20 Alkaline Phosphatase 42 L Total Protein 6.7 D Albumin 3.2 L D Microbiology 05/09/18 11:05 Wound - Foot Gram Stain - Final 05/08/18 23:40 Blood - Peripheral Aerobic Blood Culture - Preliminary No growth in 1 day 05/08/18 23:40 Blood - Peripheral Anaerobic Blood Culture - Preliminary No growth in 1 day 05/08/18 23:30 Blood - Peripheral Aerobic Blood Culture - Preliminary No growth in 1 day 05/08/18 23:30 Blood - Peripheral Anaerobic Blood Culture - Preliminary No growth in 1 day Assessment and Plan - Assessment (1) Left foot infection Code(s): L08.9 - Local infection of the skin and subcutaneous tissue, unspecified Status: Acute (2) DM (diabetes mellitus) Code(s): E11.9 - Type 2 diabetes mellitus without complications Status: Acute (3) Renal insufficiency Code(s): N28.9 - Disorder of kidney and ureter, unspecified Status: Acute - Plan 1. Left Foot postoperative infection: s/p Left Bunionectomy 04/03/[address] Putnam, w/ ongoing infection, failed outpatient on multiple antibiotics, sent to ER by Dr. Putnam for admission, continue with IV Abx, Vanco/Azactam, seen by Dr. Griffiths who will hold off on surgical intervention at this time and follow the patient clinically for next 48 hours on IV antibiotics. Follow-up with wound and blood cultures. 2. DM type II with diabetic foot infection: Sliding scale w/ Accu-Cheks, hold Metformin for now. Overall fair control 3. Renal Insufficiency with suspecting chronic kidney disease stage III: Creatinine 1.35, no previous labs for comparison, monitor I/O, avoid nephrotoxins 4. DVT Prophylaxis: Lovenox, patient declining 5. Hypokalemiasupplement (2) DM (diabetes mellitus) Qualifiers: Diabetes mellitus type: type 2 Diabetes mellitus detention insulin use: without detention use Diabetes mellitus complication status: with skin complications Diabetes mellitus complication detail: with foot ulcer Qualified Code(s): E11.621 - Type 2 diabetes mellitus with foot ulcer; L97.509 - Non-pressure chronic ulcer of other part of unspecified foot with unspecified severity
--- NOTE | 2018-05-10 11:22 | P.PNPOD ---
Subjective Interval history: No events overnight the patient admits he has been full weightbearing seen bedside with Physical Exam Vital signs: Vital Signs 05/09/18 15:30 05/09/18 20:00 05/10/18 00:00 Temperature 98.3 F 98.1 F 98.0 F Pulse Rate 76 83 63 Respiratory Rate 16 21 18 Blood Pressure 113/78 128/83 122/77 Pulse Oximetry 96 96 96 05/10/18 04:00 05/10/18 08:00 Temperature 98.0 F 97.9 F Pulse Rate 70 73 Respiratory Rate 20 18 Blood Pressure 119/62 130/81 Pulse Oximetry 96 97 Intake & Output 05/09/18 05/10/18 05/10/18 18:59 06:59 18:59 Intake Total 1676 / 1676 2400 / 2400 Output Total 800 / 800 Balance 1676 / 1676 1600 / 1600 Weight 88.45 kg Intake: IV 1100 / 1100 1200 / 1200 NS Inj 1,000 ML @ 100 mls/hr IV 1000 / 1000 1000 / 1000 .CONT .Q10H [facility] Rx#:[id number] Azactam Inj 2 GM In NS Inj 100 100 / 100 200 / 200 ML @ 200 mls/hr IV.SIG Q8H [facility] Rx#:[id number] Oral 576 / 576 1200 / 1200 Output: Urine 800 / 800 Other: # Voids 5 Date of Last Bowel Movement 05/09/18 # Bowel Movements 2 Weight On Admission 88.45 kg Narrative: Left lower extremity examined, significant reduction in erythema and swelling of the incisions over the dorsal aspect of the first metatarsal and second digit. No drainage noted, mild fibrotic wound base noted, no exposed bone or hardware, no crepitus or instability upon stressing the operative site. Pedal pulses palpable, sensation intact. Wounds: 2 linear parallel fibrotic mixed granular wounds measuring approximately 5 cm 3 mm with 3 mm of depth Medications and Allergies Active Medications: Active Medications Acetaminophen (Tylenol) 650 mg PO Q4H PRN PRN Reason: FEVER/PAIN 1-2 Hydrocodone Bitart/Acetaminophen ([place] 5/325) 1 tab PO Q4H PRN PRN Reason: PAIN 3-5 Al Hydroxide/Mg Hydroxide (Milk Of Magnesia Liq) 30 ml PO Q12H PRN PRN Reason: Mild Constipation Amlodipine Besylate (Norvasc) 5 mg PO DAILY [facility] Last Admin: 05/10/18 09:47 Dose: 5 mg Ascorbic Acid (Vitamin C) 500 mg PO DAILY [facility] Last Admin: 05/10/18 09:48 Dose: 500 mg Aspirin (Aspirin Chew) 81 mg PO DAILY [facility] Last Admin: 05/09/18 10:42 Dose: Not Given Bisacodyl (Dulcolax Supp) 10 mg RECTAL DAILY PRN PRN Reason: SEVERE CONSITIPATION Dextrose (D50w Vial) 50 ml IV.PUSH UNSCH PRN PRN Reason: PER HYPOGLYCEMIA PROTOCOL Enoxaparin Sodium (Lovenox Inj) 40 mg SQ Q24H [facility] Last Admin: 05/09/18 10:52 Dose: Not Given Glipizide (Glucotrol) 10 mg PO HS [facility] Last Admin: 05/09/18 22:19 Dose: 10 mg Glucagon (Glucagon Inj) 1 mg OTHER PRN PRN PRN Reason: for Hypoglycemia Protocol Hydrochlorothiazide (Hydrodiuril) 25 mg PO DAILY [facility] Last Admin: 05/10/18 09:47 Dose: 25 mg Sodium Chloride (Ns Inj) 1,000 mls @ 100 mls/hr IV.CONT .Q10H [facility] Last Infusion: 05/10/18 01:46 Dose: 100 mls/hr Pharmacy Profile Note (Vancomycin Consult Pharmacy) 0 mls @ 0 mls/hr OTHER UNSCH [facility] Aztreonam 2 gm/ Sodium (Chloride) 100 mls @ 200 mls/hr IV.SIG Q8H [facility] Last Admin: 05/10/18 09:48 Dose: 100 mls/hr Vancomycin HCl 1,500 mg/ (Sodium Chloride) 515 mls @ 250 mls/hr IV.SIG Q24H [facility] Last Admin: 05/10/18 03:13 Dose: 250 mls/hr Insulin Aspart (Novolog Insulin Suppl Scale Inj) 0 unit SQ ACHS [facility]; Protocol Last Admin: 05/09/18 21:54 Dose: Not Given Lactulose (Lactulose Liq) 30 ml PO DAILY PRN PRN Reason: SEVERE CONSITIPATION Lisinopril (Prinivil) 40 mg PO DAILY [facility] Last Admin: 05/10/18 09:47 Dose: 40 mg Metoclopramide HCl (Reglan Inj) 5 mg IV.PUSH Q6HR PRN; Protocol PRN Reason: NAUSEA OR VOMITING Miscellaneous Information ([facility] Ordered Lab Info) 0 each OTHER ONCE ONE Stop: 05/12/18 01:46 Morphine Sulfate (Morphine Inj) 2 mg IV.PUSH Q4H PRN PRN Reason: PAIN 6-10 Ropinirole HCl (Requip) 0.25 mg PO HS [facility] Last Admin: 05/09/18 22:19 Dose: 0.25 mg Senna/Docusate Sodium (Acry-Colace) 1 tab PO BID [facility] Last Admin: 05/10/18 09:48 Dose: 1 tab Sennosides (Senokot) 17.2 mg PO Q12H PRN PRN Reason: Moderate Constipation Last Admin: 05/09/18 10:42 Dose: 17.2 mg Sitagliptin Phosphate (Januvia) 100 mg PO DAILY [facility] Last Admin: 05/10/18 09:47 Dose: 100 mg Sodium Chloride (Ns Flush) 2 ml IV.FLUSH BID [facility] Last Admin: 05/09/18 22:20 Dose: Not Given Sodium Chloride (Ns Flush) 2 ml IV.FLUSH PRN PRN PRN Reason: FLUSH AFTER USING IV ACCESS Tamsulosin HCl (Flomax) 0.4 mg PO DAILY [facility] Last Admin: 05/10/18 09:48 Dose: 0.4 mg Temazepam (Restoril) 15 mg PO HS PRN PRN Reason: INSOMNIA Allergies Allergy/AdvReac Type Severity Reaction Status Date / Time amoxicillin Allergy Severe NOSE BLEED Verified 04/03/18 06:29 clavulanic acid Allergy Severe NOSE BLEED Verified 04/03/18 06:29 Nvmgcon-Ori-Fys Reductase Allergy Severe pain, Verified 04/03/18 06:29 Inhibitor muscle weakness Home Medications Medication Instructions Recorded Confirmed Type amlodipine 5 mg PO DAILY 05/08/18 05/08/18 History ascorbic acid (vitamin C) [Vitamin 500 mg PO DAILY 05/08/18 05/08/18 History C] aspirin 81 mg PO DAILY 05/08/18 05/08/18 History benazepril 40 mg PO DAILY 05/08/18 05/08/18 History glipizide 10 mg PO HS 05/08/18 05/08/18 History hydrochlorothiazide 25 mg PO DAILY 05/08/18 05/08/18 History metformin 1,000 mg PO HS 05/08/18 05/08/18 History metformin 500 mg PO DAILY 05/08/18 05/08/18 History plant stanol rebecca [Cholest Off] 900 mg PO DAILY 05/08/18 05/08/18 History ropinirole 0.25 mg PO HS 05/08/18 05/09/18 History sitagliptin [Januvia] 100 mg PO DAILY 05/08/18 05/08/18 History tamsulosin 0.4 mg PO DAILY 05/08/18 05/08/18 History Results - Labs CBC & Chem 7: 05/10/18 03:49 05/10/18 03:49 Laboratory Results - last 24 hr 05/09/18 05/09/18 05/10/18 15:28 21:52 03:49 WBC 12.2 H RBC 4.77 Hgb 15.5 Hct 46.4 MCV 97.2 MCH 32.6 MCHC 33.5 RDW 14.2 Plt Count 468 H MPV 8.7 Neut % (Auto) 53.9 Lymph % (Auto) 28.1 [place] % (Auto) 12.3 H Eos % (Auto) 4.8 H Baso % (Auto) 0.9 Neut # (Auto) 6.6 Lymph # (Auto) 3.4 [place] # (Auto) 1.5 H Eos # (Auto) 0.6 H Baso # (Auto) 0.1 WBC Differential . Differential Comment Auto diff final Sodium Potassium Chloride Carbon Dioxide Anion Gap BUN Creatinine Estimated GFR POC Glucose 125 H 166 H Random Glucose Calcium Total Bilirubin AST ALT Alkaline Phosphatase Total Protein Albumin 05/10/18 03:49 WBC RBC Hgb Hct MCV MCH MCHC RDW Plt Count MPV Neut % (Auto) Lymph % (Auto) [place] % (Auto) Eos % (Auto) Baso % (Auto) Neut # (Auto) Lymph # (Auto) [place] # (Auto) Eos # (Auto) Baso # (Auto) WBC Differential Differential Comment Sodium 144 Potassium 3.2 L Chloride 104 Carbon Dioxide 29.4 Anion Gap 11 BUN 14 Creatinine 1.30 Estimated GFR 54 L POC Glucose Random Glucose 99 Calcium 8.6 Total Bilirubin 0.8 AST 15 ALT 20 Alkaline Phosphatase 42 L Total Protein 6.7 D Albumin 3.2 L D Microbiology 05/08/18 23:40 Blood - Peripheral Aerobic Blood Culture - Preliminary No growth in 2 days 05/08/18 23:40 Blood - Peripheral Anaerobic Blood Culture - Preliminary No growth in 2 days 05/08/18 23:30 Blood - Peripheral Aerobic Blood Culture - Preliminary No growth in 2 days 05/08/18 23:30 Blood - Peripheral Anaerobic Blood Culture - Preliminary No growth in 2 days 05/09/18 11:05 Wound - Foot Gram Stain - Final Assessment and Plan - Assessment (1) Cellulitis of left foot Code(s): L03.116 - Cellulitis of left lower limb Status: Acute - Plan Betadine swab to wound, compressive bandaging applied. The patient is 5 weeks status post first metatarsal medial cuneiform fusion with implant as well as second metatarsal osteotomy and hammertoe correction. The patient needs to be heel transfer weight-bear only. The patient's will bring the scooter from home to assist him. The recommendation usually this early on from surgery is treatment for infected hardware. Will await wound culture however would prefer long-term IV antibiotics to be certain no deep infection. It is too soon to remove hardware will cause failure of surgery. We will follow-up tomorrow anticipate discharge once antibiotics arranged in infective organism understood. Appreciate assistance from medicine and infectious disease
[2018-05-10] MEDS: Enoxaparin Inj 40 MG/0.4 ML Syringe SQ SCH (11:43)
[2018-05-10] MEDS: Sod Chloride 0.9% Inj 1,000 ML IV.CONT SCH ×2 (11:45→22:03)
[2018-05-10] MEDS: Insulin NovoLOG Aspart Correctional Sugar Inj SQ SCH ×4 (14:13→22:02)
[2018-05-10] MEDS: glipiZIDE 10 MG Tablet PO SCH (21:59)
[2018-05-11] MEDS: Vancomycin Inj 1,500 MG in Sodium Chlor 0.9% Inj 500 ML IV.SIG SCH (02:23)
[2018-05-11] MEDS: Aztreonam Inj 2 GM in Sodium Chloride 0.9% Inj 100 ML IV.SIG SCH ×3 (02:24→18:27)
[2018-05-11 05:41] LABS: Calcium 8.9 mg/dL (8.5-10.1); Carbon Dioxide 27.8 meq/L (21.0-32.0); Potassium 3.4 meq/L (3.5-5.1)
[2018-05-11] MEDS: Lisinopril 20 MG Tablet PO SCH (09:43)
[2018-05-11] MEDS: amLODIPine 5 MG Tablet PO SCH (09:44)
[2018-05-11] MEDS: Ascorbic Acid 500 MG Tablet PO SCH (09:45)
[2018-05-11] MEDS: hydroCHLOROthiazide 25 MG Tablet PO SCH (09:45)
[2018-05-11] MEDS: Senna/Docusate Sodium 8.6/50 MG Tablet PO SCH ×2 (09:49→21:07)
[2018-05-11] MEDS: Enoxaparin Inj 40 MG/0.4 ML Syringe SQ SCH (09:49)
[2018-05-11] MEDS: Insulin NovoLOG Aspart Correctional Sugar Inj SQ SCH ×5 (11:23→21:10)
[2018-05-11] MEDS: Sod Chloride 0.9% Inj 1,000 ML IV.CONT SCH ×2 (11:24→14:41)
--- NOTE | 2018-05-11 12:31 | P.PNIM ---
Subjective Interval history: This is a 77-year-old male with a PMH of HTN and DM who was referred to the ER by his [employer], Dr. Putnam for admission due to postop left foot infection. Pt underwent Bunionectomy 04/03/18, states he has been on multiple antibiotic regimens since surgery for wound infection w/ minimal improvement, was referred to the ER for admission and IV Abx. Reports pain to left foot, worse w/ walking or wearing boot, pain is intermittent, moderate to severe, 8/10 , non-radiating. Denies fever or chills. On arrival, BP 129/71, HR 83, O2 sat 95% on RA, Afebrile. WBC 14.2. K+ 3.2. Creatinine 1.35, no previous labs for comparison. Foot X-ray with postsurgical changes, no acute fracture. Reports no significant pain. Dr. Griffiths came in and saw him this morning. Wants to eat breakfast and take his morning medications. No other concerns at this time. No fevers or chills overnight. 7-14 D/W Dr. Griffiths who is recommending likely retirement IV antibiotics with no hardware removal at this time. Will need a PICC line placed when final blood cultures are negative. Will await final ID recommendations. Await final wound cultures. REFUSING LOVENOX AT THIS TIME -15 AWAIT CULTURES AND SENSITIVITIES- SUSPECT GRAM NEGATIVE RODS DW RN AND PT SEEN BY ID AND PODIATRY AM LABS Physical Exam Vital signs: Vital Signs 05/10/18 16:00 05/10/18 20:00 05/11/18 00:00 Temperature 98.0 F 97.8 F 98.0 F Pulse Rate 90 96 H 94 H Respiratory Rate 18 18 19 Blood Pressure 133/96 H 134/81 122/77 Pulse Oximetry 95 97 95 05/11/18 04:00 05/11/18 08:00 05/11/18 09:46 Temperature 98.1 F 98.9 F Pulse Rate 79 73 73 Respiratory Rate 16 20 Blood Pressure 120/60 148/85 H 135/81 Pulse Oximetry 95 96 05/11/18 12:00 Temperature 98.1 F Pulse Rate 76 Respiratory Rate 20 Blood Pressure 133/76 Pulse Oximetry 96 Intake & Output 07/14/18 07/15/18 07/15/18 18:59 06:59 18:59 Intake Total 900 / 900 200 / 200 100 / 100 Balance 900 / 900 200 / 200 100 / 100 Intake: IV 100 / 100 200 / 200 100 / 100 Azactam Inj 2 GM In NS Inj 100 100 / 100 200 / 200 100 / 100 ML @ 200 mls/hr IV.SIG Q8H [facility] Rx#:[id number] Oral 800 / 800 Other: # Voids 4 Date of Last Bowel Movement 05/09/18 05/11/18 # Bowel Movements 2 Narrative: GENERAL: This is a well-nourished, well-developed patient, in no apparent distress. CARDIOVASCULAR: Regular rate and rhythm RESPIRATORY: Clear to auscultation. Breath sounds equal bilaterally. No wheezes , rales, or rhonchi. GASTROINTESTINAL: Abdomen soft, non-tender, nondistended. Normal active bowel sounds MUSCULOSKELETAL: Left foot surgical scar wound over surgical bunion area 2 cm x 2 cm wound along with second metatarsal with no active drainage, no significant erythema seen, clinically improving. NEURO: Alert & Oriented x4 to person, place, time, situation. Moves all ext x4 Results - Labs CBC & Chem 7: 05/10/18 03:49 05/11/18 04:16 Laboratory Results - last 24 hr 05/10/18 05/10/18 05/11/18 17:05 22:02 04:16 Sodium 143 Potassium 3.4 L Chloride 105 Carbon Dioxide 27.8 Anion Gap 10 BUN 17 Creatinine 1.39 H Estimated GFR 50 L POC Glucose 120 H 173 H Random Glucose 98 Calcium 8.9 Microbiology 05/08/18 23:40 Blood - Peripheral Aerobic Blood Culture - Preliminary No growth in 3 days 05/08/18 23:40 Blood - Peripheral Anaerobic Blood Culture - Preliminary No growth in 3 days 05/08/18 23:30 Blood - Peripheral Aerobic Blood Culture - Preliminary No growth in 3 days 05/08/18 23:30 Blood - Peripheral Anaerobic Blood Culture - Preliminary No growth in 3 days 05/09/18 11:05 Wound - Foot Gram Stain - Final 05/09/18 11:05 Wound - Foot Wound Culture - Preliminary gram negative rods - Imaging Foot X-Ray 05/08/18 23:57 CONCLUSION: Postsurgical changes. No fracture Assessment and Plan - Assessment (1) Left foot infection Code(s): L08.9 - Local infection of the skin and subcutaneous tissue, unspecified Status: Acute (2) DM (diabetes mellitus) Code(s): E11.9 - Type 2 diabetes mellitus without complications Status: Acute (3) Renal insufficiency Code(s): N28.9 - Disorder of kidney and ureter, unspecified Status: Acute - Plan 1. Left Foot postoperative infection: s/p Left Bunionectomy 04/03/[address] Putnam, w/ ongoing infection, failed outpatient on multiple antibiotics, sent to ER by Dr. Putnam for admission, continue with IV Abx, Vanco/Azactam, seen by Dr. Griffiths who will hold off on surgical intervention at this time and follow the patient clinically for next 48 hours on IV antibiotics. Follow-up with wound and blood cultures. 2. DM type II with diabetic foot infection: Sliding scale w/ Accu-Cheks, hold Metformin for now. Overall fair control 3. Renal Insufficiency with suspecting chronic kidney disease stage III: Creatinine 1.35, no previous labs for comparison, monitor I/O, avoid nephrotoxins 4. DVT Prophylaxis: Lovenox, patient declining 5. Hypokalemiasupplement REPLACE AGAIN ANTIBIOTICS PER ID AM LABS REPLACE POTASSIUM Code Status: FULL CODE Discussed Condition With: RN AND PT Discharge Planning: AWAIT SENSITIVITIES AND ID CLEARANCE (2) DM (diabetes mellitus) Qualifiers: Diabetes mellitus type: type 2 Diabetes mellitus intermediate insulin use: without meterman use Diabetes mellitus complication status: with skin complications Diabetes mellitus complication detail: with foot ulcer Qualified Code(s): E11.621 - Type 2 diabetes mellitus with foot ulcer; L97.509 - Non-pressure chronic ulcer of other part of unspecified foot with unspecified severity
--- NOTE | 2018-05-11 13:16 | P.PNPOD ---
Subjective Interval history: Doing well no complaints Physical Exam Vital signs: Vital Signs 05/10/18 16:00 05/10/18 20:00 05/11/18 00:00 Temperature 98.0 F 97.8 F 98.0 F Pulse Rate 90 96 H 94 H Respiratory Rate 18 18 19 Blood Pressure 133/96 H 134/81 122/77 Pulse Oximetry 95 97 95 05/11/18 04:00 05/11/18 08:00 05/11/18 09:46 Temperature 98.1 F 98.9 F Pulse Rate 79 73 73 Respiratory Rate 16 20 Blood Pressure 120/60 148/85 H 135/81 Pulse Oximetry 95 96 05/11/18 12:00 Temperature 98.1 F Pulse Rate 76 Respiratory Rate 20 Blood Pressure 133/76 Pulse Oximetry 96 Intake & Output 05/10/18 05/11/18 05/11/18 18:59 06:59 18:59 Intake Total 900 / 900 200 / 200 100 / 100 Balance 900 / 900 200 / 200 100 / 100 Intake: IV 100 / 100 200 / 200 100 / 100 Azactam Inj 2 GM In NS Inj 100 100 / 100 200 / 200 100 / 100 ML @ 200 mls/hr IV.SIG Q8H [facility] Rx#:[id number] Oral 800 / 800 Other: # Voids 4 Date of Last Bowel Movement 05/09/18 05/11/18 # Bowel Movements 2 Medications and Allergies Active Medications: Active Medications Acetaminophen (Tylenol) 650 mg PO Q4H PRN PRN Reason: FEVER/PAIN 1-2 Hydrocodone Bitart/Acetaminophen ([place] 5/325) 1 tab PO Q4H PRN PRN Reason: PAIN 3-5 Al Hydroxide/Mg Hydroxide (Milk Of Magnesia Liq) 30 ml PO Q12H PRN PRN Reason: Mild Constipation Amlodipine Besylate (Norvasc) 5 mg PO DAILY [facility] Last Admin: 05/11/18 09:44 Dose: 5 mg Ascorbic Acid (Vitamin C) 500 mg PO DAILY [facility] Last Admin: 05/11/18 09:45 Dose: 500 mg Aspirin (Aspirin Chew) 81 mg PO DAILY [facility] Last Admin: 05/11/18 09:50 Dose: Not Given Bisacodyl (Dulcolax Supp) 10 mg RECTAL DAILY PRN PRN Reason: SEVERE CONSITIPATION Collagenase (Santyl Oint) 1 applicatio TOPICAL DAILY [facility] Dextrose (D50w Vial) 50 ml IV.PUSH UNSCH PRN PRN Reason: PER HYPOGLYCEMIA PROTOCOL Enoxaparin Sodium (Lovenox Inj) 40 mg SQ Q24H [facility] Last Admin: 05/11/18 09:49 Dose: Not Given Glipizide (Glucotrol) 10 mg PO HS [facility] Last Admin: 05/10/18 21:59 Dose: 10 mg Glucagon (Glucagon Inj) 1 mg OTHER PRN PRN PRN Reason: for Hypoglycemia Protocol Hydrochlorothiazide (Hydrodiuril) 25 mg PO DAILY [facility] Last Admin: 05/11/18 09:45 Dose: 25 mg Sodium Chloride (Ns Inj) 1,000 mls @ 100 mls/hr IV.CONT .Q10H [facility] Last Admin: 05/11/18 11:24 Dose: Not Given Pharmacy Profile Note (Vancomycin Consult Pharmacy) 0 mls @ 0 mls/hr OTHER UNSCH [facility] Aztreonam 2 gm/ Sodium (Chloride) 100 mls @ 200 mls/hr IV.SIG Q8H [facility] Last Infusion: 05/11/18 11:24 Dose: Infused Vancomycin HCl 1,500 mg/ (Sodium Chloride) 515 mls @ 250 mls/hr IV.SIG Q24H [facility] Last Admin: 05/11/18 02:23 Dose: 250 mls/hr Insulin Aspart (Novolog Insulin Suppl Scale Inj) 0 unit SQ ACHS [facility]; Protocol Last Admin: 05/11/18 11:23 Dose: Not Given Lactulose (Lactulose Liq) 30 ml PO DAILY PRN PRN Reason: SEVERE CONSITIPATION Lisinopril (Prinivil) 40 mg PO DAILY [facility] Last Admin: 05/11/18 09:43 Dose: 40 mg Metoclopramide HCl (Reglan Inj) 5 mg IV.PUSH Q6HR PRN; Protocol PRN Reason: NAUSEA OR VOMITING Miscellaneous Information ([facility] Ordered Lab Info) 0 each OTHER ONCE ONE Stop: 05/12/18 01:46 Morphine Sulfate (Morphine Inj) 2 mg IV.PUSH Q4H PRN PRN Reason: PAIN 6-10 Ropinirole HCl (Requip) 0.25 mg PO [facility] Last Admin: 05/10/18 21:59 Dose: 0.25 mg Senna/Docusate Sodium ([place]-Colace) 1 tab PO BID [facility] Last Admin: 05/11/18 09:49 Dose: Not Given Sennosides (Senokot) 17.2 mg PO Q12H PRN PRN Reason: Moderate Constipation Last Admin: 05/09/18 10:42 Dose: 17.2 mg Sitagliptin Phosphate (Januvia) 100 mg PO DAILY [facility] Last Admin: 05/11/18 09:45 Dose: 100 mg Sodium Chloride (Ns Flush) 2 ml IV.FLUSH BID [facility] Last Admin: 05/11/18 11:24 Dose: 2 ml Sodium Chloride (Ns Flush) 2 ml IV.FLUSH PRN PRN PRN Reason: FLUSH AFTER USING IV ACCESS Last Admin: 05/11/18 10:04 Dose: 2 ml Tamsulosin HCl (Flomax) 0.4 mg PO DAILY [facility] Last Admin: 05/11/18 09:45 Dose: 0.4 mg Temazepam (Restoril) 15 mg PO HS PRN PRN Reason: INSOMNIA Allergies Allergy/AdvReac Type Severity Reaction Status Date / Time amoxicillin Allergy Severe NOSE BLEED Verified 04/03/18 06:29 clavulanic acid Allergy Severe NOSE BLEED Verified 04/03/18 06:29 Croqbwz-Shn-Sou Reductase Allergy Severe pain, Verified 04/03/18 06:29 Inhibitor muscle weakness Home Medications Medication Instructions Recorded Confirmed Type amlodipine 5 mg PO DAILY 05/08/18 05/08/18 History ascorbic acid (vitamin C) [Vitamin 500 mg PO DAILY 05/08/18 05/08/18 History C] aspirin 81 mg PO DAILY 05/08/18 05/08/18 History benazepril 40 mg PO DAILY 05/08/18 05/08/18 History glipizide 10 mg PO HS 05/08/18 05/08/18 History hydrochlorothiazide 25 mg PO DAILY 05/08/18 05/08/18 History metformin 1,000 mg PO HS 05/08/18 05/08/18 History metformin 500 mg PO DAILY 05/08/18 05/08/18 History plant stanol rebecca [Cholest Off] 900 mg PO DAILY 05/08/18 05/08/18 History ropinirole 0.25 mg PO HS 05/08/18 05/09/18 History sitagliptin [Januvia] 100 mg PO DAILY 05/08/18 05/08/18 History tamsulosin 0.4 mg PO DAILY 05/08/18 05/08/18 History Results - Labs CBC & Chem 7: 05/10/18 03:49 05/11/18 04:16 Laboratory Results - last 24 hr 05/10/18 05/10/18 05/11/18 17:05 22:02 04:16 Sodium 143 Potassium 3.4 L Chloride 105 Carbon Dioxide 27.8 Anion Gap 10 BUN 17 Creatinine 1.39 H Estimated GFR 50 L POC Glucose 120 H 173 H Random Glucose 98 Calcium 8.9 05/11/18 12:26 Sodium Potassium Chloride Carbon Dioxide Anion Gap BUN Creatinine Estimated GFR POC Glucose 158 H Random Glucose Calcium Microbiology 05/08/18 23:40 Blood - Peripheral Aerobic Blood Culture - Preliminary No growth in 3 days 05/08/18 23:40 Blood - Peripheral Anaerobic Blood Culture - Preliminary No growth in 3 days 05/08/18 23:30 Blood - Peripheral Aerobic Blood Culture - Preliminary No growth in 3 days 05/08/18 23:30 Blood - Peripheral Anaerobic Blood Culture - Preliminary No growth in 3 days 05/09/18 11:05 Wound - Foot Gram Stain - Final 05/09/18 11:05 Wound - Foot Wound Culture - Preliminary gram negative rods Assessment and Plan - Assessment (1) Cellulitis of left foot Code(s): L03.116 - Cellulitis of left lower limb Status: Acute - Plan Added Santyl wound care to be changed daily. Ordered home health for daily bandage changes once discharged. Awaiting final speciation of gram-negative mindy. Requesting long-term IV antibiotics, patient continues to improve. Continue he will transfer weight-bear only otherwise nonweightbearing as consistent with postop. Continue gm neg coverage.
[2018-05-11] MEDS ORDERED: levoFLOXacin 500 MG Tablet PO SCH (14:00)
--- NOTE | 2018-05-11 15:51 | P.PNID ---
Subjective Remarks: Patient feels okay. No complaints. No fevers. Wound culture has gram-negative mindy. There is sensitivity and identity is not yet available. Patient noted to be allergic to amoxicillin. He tells me that the allergy was nosebleed and that he was on blood thinners at the time with aspirin. He tells me that aspirin was discontinued and he was kept on the amoxicillin and he tolerated it okay. This is a 77-year-old white male who is status post foot reconstruction on 05/02/2018. The patient has a plate and screws along the first metatarsal and phalangeal joint and also there is a screw along the second metatarsal head. No hardware loosening was noted. ALLERGIES: AMOXICILLIN, CLAVULANIC ACID, STATINS, HMG-COA REDUCTASE INHIBITOR. Antibiotics: Aztreonam. Allergies/Adverse Reactions: Allergies amoxicillin Allergy (Severe, Verified 04/03/18 06:29) NOSE BLEED clavulanic acid Allergy (Severe, Verified 04/03/18 06:29) NOSE BLEED Ivqxnse-Evo-Uuq Reductase Inhibitor Allergy (Severe, Verified 04/03/18 06:29) pain, muscle weakness Objective Vital Signs 05/10/18 16:00 05/10/18 20:00 05/11/18 00:00 Temperature 98.0 F 97.8 F 98.0 F Pulse Rate 90 96 H 94 H Respiratory Rate 18 18 19 Blood Pressure 133/96 H 134/81 122/77 Pulse Oximetry 95 97 95 05/11/18 04:00 05/11/18 08:00 05/11/18 09:46 Temperature 98.1 F 98.9 F Pulse Rate 79 73 73 Respiratory Rate 16 20 Blood Pressure 120/60 148/85 H 135/81 Pulse Oximetry 95 96 05/11/18 12:00 Temperature 98.1 F Pulse Rate 76 Respiratory Rate 20 Blood Pressure 133/76 Pulse Oximetry 96 Intake & Output 05/10/18 05/11/18 05/11/18 18:59 06:59 18:59 Intake Total 900 / 900 200 / 200 100 / 100 Balance 900 / 900 200 / 200 100 / 100 Intake: IV 100 / 100 200 / 200 100 / 100 Azactam Inj 2 GM In NS Inj 100 100 / 100 200 / 200 100 / 100 ML @ 200 mls/hr IV.SIG Q8H [facility] Rx#:[id number] Oral 800 / 800 Other: # Voids 4 Date of Last Bowel Movement 05/09/18 05/11/18 # Bowel Movements 2 05/08/18 23:40 Blood - Peripheral Aerobic Blood Culture - Preliminary No growth in 3 days 05/08/18 23:40 Blood - Peripheral Anaerobic Blood Culture - Preliminary No growth in 3 days 05/08/18 23:30 Blood - Peripheral Aerobic Blood Culture - Preliminary No growth in 3 days 05/08/18 23:30 Blood - Peripheral Anaerobic Blood Culture - Preliminary No growth in 3 days 05/09/18 11:05 Wound - Foot Gram Stain - Final 05/09/18 11:05 Wound - Foot Wound Culture - Preliminary gram negative rods Lab - Hematology Results 05/10/18 03:49 WBC 12.2 H RBC 4.77 Hgb 15.5 Hct 46.4 MCV 97.2 MCH 32.6 MCHC 33.5 RDW 14.2 Plt Count 468 H MPV 8.7 Neut % (Auto) 53.9 Lymph % (Auto) 28.1 [place] % (Auto) 12.3 H Eos % (Auto) 4.8 H Baso % (Auto) 0.9 Neut # (Auto) 6.6 Lymph # (Auto) 3.4 [place] # (Auto) 1.5 H Eos # (Auto) 0.6 H Baso # (Auto) 0.1 WBC Differential . Differential Comment Auto diff final Lab - Chemistry Results 05/09/18 05/10/18 05/10/18 21:52 03:49 12:15 Sodium 144 Potassium 3.2 L Chloride 104 Carbon Dioxide 29.4 Anion Gap 11 BUN 14 Creatinine 1.30 Estimated GFR 54 L POC Glucose 166 H 128 H Random Glucose 99 Calcium 8.6 Total Bilirubin 0.8 AST 15 ALT 20 Alkaline Phosphatase 42 L Total Protein 6.7 D Albumin 3.2 L D 05/10/18 05/10/18 05/11/18 17:05 22:02 04:16 Sodium 143 Potassium 3.4 L Chloride 105 Carbon Dioxide 27.8 Anion Gap 10 BUN 17 Creatinine 1.39 H Estimated GFR 50 L POC Glucose 120 H 173 H Random Glucose 98 Calcium 8.9 Total Bilirubin AST ALT Alkaline Phosphatase Total Protein Albumin 05/11/18 12:26 Sodium Potassium Chloride Carbon Dioxide Anion Gap BUN Creatinine Estimated GFR POC Glucose 158 H Random Glucose Calcium Total Bilirubin AST ALT Alkaline Phosphatase Total Protein Albumin Imaging: ITS Impressions Foot X-Ray 05/08/18 23:57 CONCLUSION: Postsurgical changes. No fracture Physical Exam: GENERAL: No acute distress HEENT: No icterus. No conjunctival erythema. Oropharynx: Mucosa moist. No thrush. No visible lesions. NECK: Supple. No adenopathy. No swelling. LUNGS: Clear to auscultation. HEART: Regular S1 and S2. No audible murmurs. ABDOMEN: Bowel sounds present. Soft, nontender. EXTREMITIES: The left foot has erythema from the base of the toes to about mid-foot at the dorsal aspect. The second toe has a dry ulcer crater at the dorsum and the dorsum of the second toe has erythema. Positive warmth. No drainage visible. There are 2 superficial ulcerations at the dorsum of the foot, along the base of the great toe backwards, approximately 2 inches long and another small ulcer approximately 1/2-inch back beyond the second toe. SKIN: No diffuse rash. NEUROLOGIC: No gross focal finding. PSYCHIATRIC: Patient is calm and cooperative. Assessment and Plan - Plan IMPRESSION: 1. Cellulitis of the left foot. Not much improvement in the erythema yet. 2. Postoperative infection of the right foot. The patient is status post reconstructive surgery on the left foot. 3. Wound infection with gram-negative mindy. Identity pending. RECOMMENDATIONS: 1. Continue aztreonam. 2. Stop vancomycin 3. Anticipate IV antibiotic outpatient times 6 weeks. Antibiotic to be determined once the sensitivity of the gram-negative mindy is available.
[2018-05-11] MEDS: Collagenase Oint 30 GM Tube TOPICAL SCH (17:45)
[2018-05-11] MEDS: glipiZIDE 10 MG Tablet PO SCH (21:27)
[2018-05-12] MEDS ORDERED: Pharmacy Ordered Lab Info OTHER ONE (01:45)
[2018-05-12] MEDS: Aztreonam Inj 2 GM in Sodium Chloride 0.9% Inj 100 ML IV.SIG SCH ×2 (02:34→09:28)
[2018-05-12] MEDS: Vancomycin Inj 1,500 MG in Sodium Chlor 0.9% Inj 500 ML IV.SIG SCH (03:20)
[2018-05-12] MEDS: Sod Chloride 0.9% Inj 1,000 ML IV.CONT SCH ×2 (03:21→18:49)
[2018-05-12 07:11] LABS: Baso # (Auto) 0.2 th/mm3 (0.0-0.2); Baso % (Auto) 1.2 % (0.0-2.0); Eos # (Auto) 0.5 th/mm3 (0.0-0.4); Eos % (Auto) 4.2 % (0.0-4.0); Hematocrit 47.2 % (39.0-51.0); Hemoglobin 16.1 gm/dL (13.0-17.0); Lymph # (Auto) 3.4 th/mm3 (1.0-4.8); Lymph % (Auto) 26.7 % (9.0-44.0); Mean Corpuscular HGB Conc 34.2 % (32.0-36.0); Mean Corpuscular Hemoglobin 32.8 pg (27.0-34.0); Mean Corpuscular Volume 95.9 fL (80.0-100.0); Mean Platelet Volume 8.8 fL (7.0-11.0); Mono # (Auto) 1.3 th/mm3 (0.0-0.9); Mono % (Auto) 10.1 % (0.0-8.0); Neut # (Auto) 7.5 th/mm3 (1.8-7.7); Neut % (Auto) 57.8 % (16.0-70.0); Platelet Count 448 th/mm3 (150-450); Red Blood Count 4.92 mil/mm3 (4.50-5.90); Red Cell Distribution Width 13.7 % (11.6-17.2); White Blood Count 12.9 th/mm3 (4.0-11.0)
[2018-05-12 07:34] LABS: Alanine Aminotransferase 29 U/L (12-78); Albumin 3.5 g/dL (3.4-5.0); Anion Gap 12 meq/L (5-15); Aspartate Aminotransferase 22 U/L (15-37); Blood Urea Nitrogen 17 mg/dL (7-18); Calcium 8.9 mg/dL (8.5-10.1); Carbon Dioxide 22.9 meq/L (21.0-32.0); Chloride 107 meq/L (98-107); Glomerular Filtration Rate 55 mL/min (>89); Glucose,Random 121 mg/dL (74-106); Magnesium 2.2 mg/dL (1.5-2.5); Phosphorus 2.8 mg/dL (2.5-4.9); Potassium 3.6 meq/L (3.5-5.1); Sodium 142 meq/L (136-145)
[2018-05-12 07:44] LABS: Alkaline Phosphatase 48 U/L (45-117); Free T4 (Free Thyroxine) 1.14 ng/dL (0.76-1.46); Total Protein 7.4 g/dL (6.4-8.2)
[2018-05-12] MEDS: hydroCHLOROthiazide 25 MG Tablet PO SCH (09:26)
[2018-05-12] MEDS: Lisinopril 20 MG Tablet PO SCH (09:27)
[2018-05-12] MEDS: amLODIPine 5 MG Tablet PO SCH (09:28)
[2018-05-12] MEDS: Ascorbic Acid 500 MG Tablet PO SCH (09:29)
[2018-05-12] MEDS: Enoxaparin Inj 40 MG/0.4 ML Syringe SQ SCH (09:30)
[2018-05-12] MEDS: Collagenase Oint 30 GM Tube TOPICAL SCH (09:33)
--- NOTE | 2018-05-12 10:31 | P.PNIM ---
Subjective Interval history: This is a 77-year-old male with a PMH of HTN and DM who was referred to the ER by his Poultry Buyer, Dr. Putnam for admission due to postop left foot infection. Pt underwent Bunionectomy 04/03/18, states he has been on multiple antibiotic regimens since surgery for wound infection w/ minimal improvement, was referred to the ER for admission and IV Abx. Reports pain to left foot, worse w/ walking or wearing boot, pain is intermittent, moderate to severe, 8/10 , non-radiating. Denies fever or chills. On arrival, BP 129/71, HR 83, O2 sat 95% on RA, Afebrile. WBC 14.2. K+ 3.2. Creatinine 1.35, no previous labs for comparison. Foot X-ray with postsurgical changes, no acute fracture. Reports no significant pain. Dr. Griffiths came in and saw him this morning. Wants to eat breakfast and take his morning medications. No other concerns at this time. No fevers or chills overnight. 7-14 D/W Dr. Griffiths who is recommending likely alf IV antibiotics with no hardware removal at this time. Will need a PICC line placed when final blood cultures are negative. Will await final ID recommendations. Await final wound cultures. REFUSING LOVENOX AT THIS TIME 7-15 AWAIT CULTURES AND SENSITIVITIES- SUSPECT GRAM NEGATIVE RODS CANDACE RN AND PT SEEN BY ID AND PODIATRY AM LABS -16 AWAIT CULTURES AND SENSITIVITIES- WILL NEED ID AND PODIATRY CLEARANCE WILL PROBABLY NEED A PICC LINE AM LABS CANDACE RN AND PT Physical Exam Vital signs: Vital Signs 05/11/18 12:00 05/11/18 16:00 05/11/18 20:00 Temperature 98.1 F 98.3 F 97.9 F Pulse Rate 76 97 H 90 Respiratory Rate 20 18 18 Blood Pressure 133/76 133/62 130/78 Pulse Oximetry 96 96 97 05/12/18 00:00 05/12/18 04:00 05/12/18 09:35 Temperature 97.9 F 97.9 F 98.1 F Pulse Rate 87 78 68 Respiratory Rate 17 14 16 Blood Pressure 122/60 120/61 167/77 H Pulse Oximetry 96 95 98 Intake & Output 05/11/18 05/12/18 05/12/18 18:59 06:59 18:59 Intake Total 820 / 820 440 / 440 Output Total 3 / 3 Balance 820 / 820 437 / 437 Weight 89.9 kg Intake: IV 100 / 100 200 / 200 Azactam Inj 2 GM In NS Inj 100 100 / 100 200 / 200 ML @ 200 mls/hr IV.SIG Q8H [facility] Rx#:[id number] Oral 720 / 720 240 / 240 Output: Urine 3 / 3 Other: # Voids 4 Date of Last Bowel Movement 05/11/18 05/11/18 Narrative: GENERAL: This is a well-nourished, well-developed patient, in no apparent distress. CARDIOVASCULAR: Regular rate and rhythm RESPIRATORY: Clear to auscultation. Breath sounds equal bilaterally. No wheezes , rales, or rhonchi. GASTROINTESTINAL: Abdomen soft, non-tender, nondistended. Normal active bowel sounds MUSCULOSKELETAL: Left foot surgical scar wound over surgical bunion area 2 cm x 2 cm wound along with second metatarsal with no active drainage, no significant erythema seen, clinically improving. NEURO: Alert & Oriented x4 to person, place, time, situation. Moves all ext x4 Results - Labs CBC & Chem 7: 05/12/18 06:24 05/12/18 06:24 Laboratory Results - last 24 hr 05/11/18 05/11/18 05/11/18 12:26 17:47 21:09 WBC RBC Hgb Hct MCV MCH MCHC RDW Plt Count MPV Neut % (Auto) Lymph % (Auto) [place] % (Auto) Eos % (Auto) Baso % (Auto) Neut # (Auto) Lymph # (Auto) [place] # (Auto) Eos # (Auto) Baso # (Auto) WBC Differential Differential Comment Sodium Potassium Chloride Carbon Dioxide Anion Gap BUN Creatinine Estimated GFR POC Glucose 158 H 146 H 194 H Random Glucose Calcium Phosphorus Magnesium Total Bilirubin AST ALT Alkaline Phosphatase Total Protein Albumin TSH Free T4 Vancomycin Trough 05/12/18 05/12/18 05/12/18 01:15 06:24 06:24 WBC 12.9 H RBC 4.92 Hgb 16.1 Hct 47.2 MCV 95.9 MCH 32.8 MCHC 34.2 RDW 13.7 Plt Count 448 MPV 8.8 Neut % (Auto) 57.8 Lymph % (Auto) 26.7 [place] % (Auto) 10.1 H Eos % (Auto) 4.2 H Baso % (Auto) 1.2 Neut # (Auto) 7.5 Lymph # (Auto) 3.4 [place] # (Auto) 1.3 H Eos # (Auto) 0.5 H Baso # (Auto) 0.2 WBC Differential . Differential Comment Auto diff final Sodium 142 Potassium 3.6 Chloride 107 Carbon Dioxide 22.9 Anion Gap 12 BUN 17 Creatinine 1.27 Estimated GFR 55 L POC Glucose Random Glucose 121 H Calcium 8.9 Phosphorus 2.8 Magnesium 2.2 Total Bilirubin 0.7 AST 22 ALT 29 Alkaline Phosphatase 48 Total Protein 7.4 D Albumin 3.5 TSH 1.660 Free T4 1.14 Vancomycin Trough 12.3 H 05/12/18 09:19 WBC RBC Hgb Hct MCV MCH MCHC RDW Plt Count MPV Neut % (Auto) Lymph % (Auto) [place] % (Auto) Eos % (Auto) Baso % (Auto) Neut # (Auto) Lymph # (Auto) [place] # (Auto) Eos # (Auto) Baso # (Auto) WBC Differential Differential Comment Sodium Potassium Chloride Carbon Dioxide Anion Gap BUN Creatinine Estimated GFR POC Glucose 153 H Random Glucose Calcium Phosphorus Magnesium Total Bilirubin AST ALT Alkaline Phosphatase Total Protein Albumin TSH Free T4 Vancomycin Trough Microbiology 05/08/18 23:40 Blood - Peripheral Aerobic Blood Culture - Preliminary No growth in 3 days 05/08/18 23:40 Blood - Peripheral Anaerobic Blood Culture - Preliminary No growth in 3 days 05/08/18 23:30 Blood - Peripheral Aerobic Blood Culture - Preliminary No growth in 3 days 05/08/18 23:30 Blood - Peripheral Anaerobic Blood Culture - Preliminary No growth in 3 days 05/09/18 11:05 Wound - Foot Gram Stain - Final 05/09/18 11:05 Wound - Foot Wound Culture - Preliminary gram negative rods - Imaging Foot X-Ray 05/08/18 23:57 CONCLUSION: Postsurgical changes. No fracture Assessment and Plan - Assessment (1) Left foot infection Code(s): L08.9 - Local infection of the skin and subcutaneous tissue, unspecified Status: Acute (2) DM (diabetes mellitus) Code(s): E11.9 - Type 2 diabetes mellitus without complications Status: Acute (3) Renal insufficiency Code(s): N28.9 - Disorder of kidney and ureter, unspecified Status: Acute - Plan 1. Left Foot postoperative infection: s/p Left Bunionectomy 04/03/[address] Putnam, w/ ongoing infection, failed outpatient on multiple antibiotics, sent to ER by Dr. Putnam for admission, continue with IV Abx, Vanco/Azactam, seen by Dr. Griffiths who will hold off on surgical intervention at this time and follow the patient clinically for next 48 hours on IV antibiotics. Follow-up with wound and blood cultures. AWAIT SENSITIVITIES 2. DM type II with diabetic foot infection: Sliding scale w/ Accu-Cheks, hold Metformin for now. Overall fair control 3. Renal Insufficiency with suspecting chronic kidney disease stage III: Creatinine 1.35, no previous labs for comparison, monitor I/O, avoid nephrotoxins 4. DVT Prophylaxis: Lovenox, patient declining 5. Hypokalemiasupplement REPLACE AGAIN ANTIBIOTICS PER ID AM LABS REPLACE POTASSIUM Code Status: FULL CODE Discussed Condition With: RN AND PATIENT Discharge Planning: AWAIT SENSITIVITIES AND ID CLEARANCE (2) DM (diabetes mellitus) Qualifiers: Diabetes mellitus type: type 2 Diabetes mellitus exterminator insulin use: without snf use Diabetes mellitus complication status: with skin complications Diabetes mellitus complication detail: with foot ulcer Qualified Code(s): E11.621 - Type 2 diabetes mellitus with foot ulcer; L97.509 - Non-pressure chronic ulcer of other part of unspecified foot with unspecified severity
[2018-05-12 16:17] LABS: Hemoglobin A1c 6.3 % (4.3-6.0)
--- NOTE | 2018-05-12 17:27 | P.DCO ---
Post Hospital Infusion Therapy Location of Infusion Therapy: Home Health Care IV Infusion Order Patient Weight: 89.9 kg - Diagnosis (1) Cellulitis of left foot Code(s): L03.116 - Cellulitis of left lower limb (2) Left foot infection Code(s): L08.9 - Local infection of the skin and subcutaneous tissue, unspecified - Administer Medication Ceftriaxone Dose: 2 grams IV Directions: q 24 hours Stop Treatment: 06/20/18 - Additional Information Venous Access: PICC Line Additional Instructions: [x] Peripheral flush and dressing changes per protocol [x] Implanted port and central coordinator of online programs: * Implanted port: 10 ml Normal Saline followed by 5 ml Heparin 100 units/ml Heparin flush after each use and monthly to maintain. [] May leave port accessed during therapy. [] May leave peripheral site accessed for duration of therapy. [x] If patient has SOB or respiratory distress, check oxygen saturation. If less than 90% or clinical signs of respiratory distress, administer oxygen at 2 L/min. via nasal cannula and notify physician. [x] Anaphylaxis/Reaction orders: * Stop infusion. * Keep IV line open with saline flush. * Notify physician. * Monitor vital signs every 15 minutes until symptoms resolve. * Check Oxygen saturation; Oxygen at 2 L/min. via nasal cannula if less than 90% or clinical signs of respiratory distress. * Administer diphenhydramine (Benadryl) 25 mg IV STAT, (unless patient has received as pre-med). May repeat once, if necessary. * Solu-Cortef 250 mg IVP over 30-60 seconds, use 100 mg vials for each dissolution. * Epinephrine (1mg/1 ml) 0.3 mg subcutaneously or IVP now with any signs of respiratory distress. * Check with physician for new additional pre-med orders if patient is re- challenged or re-treated. [x] May remove PICC line when treatment complete, after confirming with Physician. [x] If the patient is admitted to the hospital, the ED, or transferred via [facility] , complete transfer form including medication reconciliation order sheet. Weekly Labs: BMP Allergies amoxicillin Allergy (Severe, Verified 04/03/18 06:29) NOSE BLEED clavulanic acid Allergy (Severe, Verified 04/03/18 06:29) NOSE BLEED Uheuiqv-Yam-Mll Reductase Inhibitor Allergy (Severe, Verified 04/03/18 06:29) pain, muscle weakness
--- NOTE | 2018-05-12 17:48 | P.PNID ---
Subjective Remarks: Patient without complaints. No fevers. No nausea or vomiting. Wound culture has Enterobacter cloaca UTI. Patient noted to be allergic to amoxicillin. He told me that the allergy was nosebleed and that he was on blood thinners at the time with aspirin. He tells me that aspirin was discontinued and he was kept on the amoxicillin and he tolerated it okay. This is a 77-year-old white male who is status post foot reconstruction on 05/02/2018. The patient has a plate and screws along the first metatarsal and phalangeal joint and also there is a screw along the second metatarsal head. No hardware loosening was noted. ALLERGIES: AMOXICILLIN, CLAVULANIC ACID, STATINS, HMG-COA REDUCTASE INHIBITOR. Antibiotics: Aztreonam. Allergies/Adverse Reactions: Allergies amoxicillin Allergy (Severe, Verified 04/03/18 06:29) NOSE BLEED clavulanic acid Allergy (Severe, Verified 04/03/18 06:29) NOSE BLEED Xzvnvtb-Rup-Xxd Reductase Inhibitor Allergy (Severe, Verified 04/03/18 06:29) pain, muscle weakness Objective Vital Signs 05/11/18 20:00 05/12/18 00:00 05/12/18 04:00 Temperature 97.9 F 97.9 F 97.9 F Pulse Rate 90 87 78 Respiratory Rate 18 17 14 Blood Pressure 130/78 122/60 120/61 Pulse Oximetry 97 96 95 05/12/18 09:35 05/12/18 12:48 Temperature 98.1 F 97.4 F L Pulse Rate 68 78 Respiratory Rate 16 15 Blood Pressure 167/77 H 139/79 Pulse Oximetry 98 98 Intake & Output 05/11/18 05/12/18 05/12/18 18:59 06:59 18:59 Intake Total 820 / 820 440 / 440 Output Total 3 / 3 Balance 820 / 820 437 / 437 Weight 89.9 kg 89.9 kg Intake: IV 100 / 100 200 / 200 Azactam Inj 2 GM In NS Inj 100 100 / 100 200 / 200 ML @ 200 mls/hr IV.SIG Q8H [facility] Rx#:[id number] Oral 720 / 720 240 / 240 Output: Urine 3 / 3 Other: # Voids 4 Date of Last Bowel Movement 05/11/18 05/11/18 05/08/18 23:40 Blood - Peripheral Aerobic Blood Culture - Preliminary No growth in 4 days 05/08/18 23:40 Blood - Peripheral Anaerobic Blood Culture - Preliminary No growth in 4 days 05/08/18 23:30 Blood - Peripheral Aerobic Blood Culture - Preliminary No growth in 4 days 05/08/18 23:30 Blood - Peripheral Anaerobic Blood Culture - Preliminary No growth in 4 days 05/09/18 11:05 Wound - Foot Gram Stain - Final 05/09/18 11:05 Wound - Foot Wound Culture - Final Enterobacter cloacae Lab - Hematology Results 05/12/18 06:24 WBC 12.9 H RBC 4.92 Hgb 16.1 Hct 47.2 MCV 95.9 MCH 32.8 MCHC 34.2 RDW 13.7 Plt Count 448 MPV 8.8 Neut % (Auto) 57.8 Lymph % (Auto) 26.7 [place] % (Auto) 10.1 H Eos % (Auto) 4.2 H Baso % (Auto) 1.2 Neut # (Auto) 7.5 Lymph # (Auto) 3.4 [place] # (Auto) 1.3 H Eos # (Auto) 0.5 H Baso # (Auto) 0.2 WBC Differential . Differential Comment Auto diff final Lab - Chemistry Results 05/10/18 05/11/18 05/11/18 22:02 04:16 12:26 Sodium 143 Potassium 3.4 L Chloride 105 Carbon Dioxide 27.8 Anion Gap 10 BUN 17 Creatinine 1.39 H Estimated GFR 50 L POC Glucose 173 H 158 H Random Glucose 98 Hemoglobin A1c Calcium 8.9 Phosphorus Magnesium Total Bilirubin AST ALT Alkaline Phosphatase Total Protein Albumin TSH Free T4 05/11/18 05/11/18 05/12/18 17:47 21:09 06:24 Sodium Potassium Chloride Carbon Dioxide Anion Gap BUN Creatinine Estimated GFR POC Glucose 146 H 194 H Random Glucose Hemoglobin A1c 6.3 H Calcium Phosphorus Magnesium Total Bilirubin AST ALT Alkaline Phosphatase Total Protein Albumin TSH Free T4 05/12/18 05/12/18 05/12/18 06:24 09:19 12:48 Sodium 142 Potassium 3.6 Chloride 107 Carbon Dioxide 22.9 Anion Gap 12 BUN 17 Creatinine 1.27 Estimated GFR 55 L POC Glucose 153 H 161 H Random Glucose 121 H Hemoglobin A1c Calcium 8.9 Phosphorus 2.8 Magnesium 2.2 Total Bilirubin 0.7 AST 22 ALT 29 Alkaline Phosphatase 48 Total Protein 7.4 D Albumin 3.5 TSH 1.660 Free T4 1.14 Imaging: ITS Impressions Foot X-Ray 05/08/18 23:57 CONCLUSION: Postsurgical changes. No fracture Physical Exam: GENERAL: No acute distress HEENT: No icterus. No conjunctival erythema. Oropharynx: Mucosa moist. No thrush. No visible lesions. NECK: Supple. No adenopathy. No swelling. LUNGS: Clear to auscultation. HEART: Regular S1 and S2. No audible murmurs. ABDOMEN: Bowel sounds present. Soft, nontender. EXTREMITIES: The left foot has erythema from the base of the toes to about mid-foot at the dorsal aspect same. The second toe has a dry ulcer crater at the dorsum and the dorsum of the second toe has erythema. Positive warmth. No drainage visible. There are 2 superficial ulcerations at the dorsum of the foot, along the base of the great toe backwards, approximately 2 inches long and another small ulcer approximately 1/2-inch back beyond the second toe. SKIN: No diffuse rash. NEUROLOGIC: No gross focal finding. PSYCHIATRIC: Patient is calm and cooperative. Assessment and Plan (1) Cellulitis of left foot Status: Acute Code(s): L03.116 - Cellulitis of left lower limb (2) Left foot infection Status: Acute Code(s): L08.9 - Local infection of the skin and subcutaneous tissue, unspecified - Plan IMPRESSION: 1. Cellulitis of the left foot. Enterobacter. 2. Postoperative infection of the left foot. The patient is status post reconstructive surgery on the left foot RECOMMENDATIONS: 1. Stop aztreonam. 2. IV ceftriaxone for 6 weeks. Infusion form filled out. 3. I will start the ceftriaxone tonight. 4. Case management to arrange antibiotics. Patient can be discharged tomorrow from my standpoint if the buttock arrangements are made. Follow-up with Dr. Griffiths.
[2018-05-12] MEDS: Senna/Docusate Sodium 8.6/50 MG Tablet PO SCH ×2 (18:51→21:47)
--- NOTE | 2018-05-12 19:34 | P.PNPOD ---
Subjective Interval history: Doing well ready to go home Physical Exam Vital signs: Vital Signs 05/11/18 20:00 05/12/18 00:00 05/12/18 04:00 Temperature 97.9 F 97.9 F 97.9 F Pulse Rate 90 87 78 Respiratory Rate 18 17 14 Blood Pressure 130/78 122/60 120/61 Pulse Oximetry 97 96 95 05/12/18 09:35 05/12/18 12:48 05/12/18 17:54 Temperature 98.1 F 97.4 F L 98.1 F Pulse Rate 68 78 79 Respiratory Rate 18 Blood Pressure 167/77 H 139/79 156/82 H Pulse Oximetry 98 98 96 Intake & Output 05/12/18 05/12/18 05/13/18 06:59 18:59 06:59 Intake Total 440 / 440 1200 / 1200 Output Total 3 / 3 Balance 437 / 437 1200 / 1200 Weight 89.9 kg 89.9 kg Intake: IV 200 / 200 Azactam Inj 2 GM In NS Inj 100 200 / 200 ML @ 200 mls/hr IV.SIG Q8H [facility] Rx#:[id number] Oral 240 / 240 1200 / 1200 Output: Urine 3 / 3 Other: # Voids 4 Date of Last Bowel Movement 05/11/18 # Bowel Movements 1 Narrative: Left lower extremity examined, significant reduction in erythema and swelling of the incisions over the dorsal aspect of the first metatarsal and second digit. No drainage noted, mild fibrotic wound base noted, no exposed bone or hardware, no crepitus or instability upon stressing the operative site. Pedal pulses palpable, sensation intact. Wounds: 2 linear parallel fibrotic mixed granular wounds measuring approximately 5 cm 3 mm with 3 mm of depth Medications and Allergies Active Medications: Active Medications Acetaminophen (Tylenol) 650 mg PO Q4H PRN PRN Reason: FEVER/PAIN 1-2 Hydrocodone Bitart/Acetaminophen ([place] 5/325) 1 tab PO Q4H PRN PRN Reason: PAIN 3-5 Al Hydroxide/Mg Hydroxide (Milk Of Magnesia Liq) 30 ml PO Q12H PRN PRN Reason: Mild Constipation Amlodipine Besylate (Norvasc) 5 mg PO DAILY [facility] Last Admin: 05/12/18 09:28 Dose: 5 mg Ascorbic Acid (Vitamin C) 500 mg PO DAILY [facility] Last Admin: 05/12/18 09:29 Dose: 500 mg Aspirin (Aspirin Chew) 81 mg PO DAILY [facility] Last Admin: 05/12/18 09:22 Dose: Not Given Bisacodyl (Dulcolax Supp) 10 mg RECTAL DAILY PRN PRN Reason: SEVERE CONSITIPATION Collagenase (Santyl Oint) 1 applicatio TOPICAL DAILY [facility] Last Admin: 05/12/18 09:33 Dose: 1 applicatio Dextrose (D50w Vial) 50 ml IV.PUSH UNSCH PRN PRN Reason: PER HYPOGLYCEMIA PROTOCOL Enoxaparin Sodium (Lovenox Inj) 40 mg SQ Q24H [facility] Last Admin: 05/12/18 09:30 Dose: Not Given Glipizide (Glucotrol) 10 mg PO HS [facility] Last Admin: 05/11/18 21:27 Dose: 10 mg Glucagon (Glucagon Inj) 1 mg OTHER PRN PRN PRN Reason: for Hypoglycemia Protocol Hydrochlorothiazide (Hydrodiuril) 25 mg PO DAILY [facility] Last Admin: 05/12/18 09:26 Dose: 25 mg Sodium Chloride (Ns Inj) 1,000 mls @ 100 mls/hr IV.CONT .Q10H [facility] Last Admin: 05/12/18 18:49 Dose: Not Given Pharmacy Profile Note (Vancomycin Consult Pharmacy) 0 mls @ 0 mls/hr OTHER UNSCH [facility] Vancomycin HCl 1,500 mg/ (Sodium Chloride) 515 mls @ 250 mls/hr IV.SIG Q24H [facility] Last Admin: 05/12/18 03:20 Dose: 250 mls/hr Ceftriaxone Sodium 2,000 mg/ (Sodium Chloride) 100 mls @ 200 mls/hr IV.SIG Q24H [facility] Insulin Aspart (Novolog Insulin Suppl Scale Inj) 0 unit SQ ACHS [facility]; Protocol Last Admin: 05/11/18 21:10 Dose: Not Given Lactulose (Lactulose Liq) 30 ml PO DAILY PRN PRN Reason: SEVERE CONSITIPATION Lisinopril (Prinivil) 40 mg PO DAILY [facility] Last Admin: 05/12/18 09:27 Dose: 40 mg Metoclopramide HCl (Reglan Inj) 5 mg IV.PUSH Q6HR PRN; Protocol PRN Reason: NAUSEA OR VOMITING Miscellaneous Information ([facility] Ordered Lab Info) 0 each OTHER ONCE ONE Stop: 05/15/18 01:46 Morphine Sulfate (Morphine Inj) 2 mg IV.PUSH Q4H PRN PRN Reason: PAIN 6-10 Ropinirole HCl (Requip) 0.25 mg PO HS [facility] Last Admin: 05/11/18 21:51 Dose: 0.25 mg Senna/Docusate Sodium (Cary-Colace) 1 tab PO BID [facility] Last Admin: 05/12/18 18:51 Dose: Not Given Sennosides (Senokot) 17.2 mg PO Q12H PRN PRN Reason: Moderate Constipation Last Admin: 05/09/18 10:42 Dose: 17.2 mg Sitagliptin Phosphate (Januvia) 100 mg PO DAILY [facility] Last Admin: 05/12/18 09:25 Dose: 100 mg Sodium Chloride (Ns Flush) 2 ml IV.FLUSH BID [facility] Last Admin: 05/12/18 09:33 Dose: 2 ml Sodium Chloride (Ns Flush) 2 ml IV.FLUSH PRN PRN PRN Reason: FLUSH AFTER USING IV ACCESS Last Admin: 05/11/18 10:04 Dose: 2 ml Sodium Chloride (Ns Flush) 0 ml IV.FLUSH DAILY [facility] Tamsulosin HCl (Flomax) 0.4 mg PO DAILY [facility] Last Admin: 05/12/18 09:27 Dose: 0.4 mg Temazepam (Restoril) 15 mg PO HS PRN PRN Reason: INSOMNIA Allergies Allergy/AdvReac Type Severity Reaction Status Date / Time amoxicillin Allergy Severe NOSE BLEED Verified 04/03/18 06:29 clavulanic acid Allergy Severe NOSE BLEED Verified 04/03/18 06:29 [id number]-Mib Reductase Allergy Severe pain, Verified 04/03/18 06:29 Inhibitor muscle weakness Home Medications Medication Instructions Recorded Confirmed Type amlodipine 5 mg PO DAILY 05/08/18 05/08/18 History ascorbic acid (vitamin C) [Vitamin 500 mg PO DAILY 05/08/18 05/08/18 History C] aspirin 81 mg PO DAILY 05/08/18 05/08/18 History benazepril 40 mg PO DAILY 05/08/18 05/08/18 History glipizide 10 mg PO HS 05/08/18 05/08/18 History hydrochlorothiazide 25 mg PO DAILY 05/08/18 05/08/18 History metformin 1,000 mg PO HS 05/08/18 05/08/18 History metformin 500 mg PO DAILY 05/08/18 05/08/18 History plant stanol rebecca [Cholest Off] 900 mg PO DAILY 05/08/18 05/08/18 History ropinirole 0.25 mg PO HS 05/08/18 05/09/18 History sitagliptin [Januvia] 100 mg PO DAILY 05/08/18 05/08/18 History tamsulosin 0.4 mg PO DAILY 05/08/18 05/08/18 History Results - Labs CBC & Chem 7: 05/12/18 06:24 05/12/18 06:24 Laboratory Results - last 24 hr 05/11/18 05/12/18 05/12/18 21:09 01:15 06:24 WBC 12.9 H RBC 4.92 Hgb 16.1 Hct 47.2 MCV 95.9 MCH 32.8 MCHC 34.2 RDW 13.7 Plt Count 448 MPV 8.8 Neut % (Auto) 57.8 Lymph % (Auto) 26.7 [place] % (Auto) 10.1 H Eos % (Auto) 4.2 H Baso % (Auto) 1.2 Neut # (Auto) 7.5 Lymph # (Auto) 3.4 [place] # (Auto) 1.3 H Eos # (Auto) 0.5 H Baso # (Auto) 0.2 WBC Differential . Differential Comment Auto diff final Sodium Potassium Chloride Carbon Dioxide Anion Gap BUN Creatinine Estimated GFR POC Glucose 194 H Random Glucose Hemoglobin A1c Calcium Phosphorus Magnesium Total Bilirubin AST ALT Alkaline Phosphatase Total Protein Albumin TSH Free T4 Vancomycin Trough 12.3 H 05/12/18 05/12/18 05/12/18 06:24 06:24 09:19 WBC RBC Hgb Hct MCV MCH MCHC RDW Plt Count MPV Neut % (Auto) Lymph % (Auto) [place] % (Auto) Eos % (Auto) Baso % (Auto) Neut # (Auto) Lymph # (Auto) [place] # (Auto) Eos # (Auto) Baso # (Auto) WBC Differential Differential Comment Sodium 142 Potassium 3.6 Chloride 107 Carbon Dioxide 22.9 Anion Gap 12 BUN 17 Creatinine 1.27 Estimated GFR 55 L POC Glucose 153 H Random Glucose 121 H Hemoglobin A1c 6.3 H Calcium 8.9 Phosphorus 2.8 Magnesium 2.2 Total Bilirubin 0.7 AST 22 ALT 29 Alkaline Phosphatase 48 Total Protein 7.4 D Albumin 3.5 TSH 1.660 Free T4 1.14 Vancomycin Trough 07/16/18 07/16/18 12:48 18:23 WBC RBC Hgb Hct MCV MCH MCHC RDW Plt Count MPV Neut % (Auto) Lymph % (Auto) [place] % (Auto) Eos % (Auto) Baso % (Auto) Neut # (Auto) Lymph # (Auto) [place] # (Auto) Eos # (Auto) Baso # (Auto) WBC Differential Differential Comment Sodium Potassium Chloride Carbon Dioxide Anion Gap BUN Creatinine Estimated GFR POC Glucose 161 H 132 H Random Glucose Hemoglobin A1c Calcium Phosphorus Magnesium Total Bilirubin AST ALT Alkaline Phosphatase Total Protein Albumin TSH Free T4 Vancomycin Trough Microbiology 05/08/18 23:40 Blood - Peripheral Aerobic Blood Culture - Preliminary No growth in 4 days 05/08/18 23:40 Blood - Peripheral Anaerobic Blood Culture - Preliminary No growth in 4 days 05/08/18 23:30 Blood - Peripheral Aerobic Blood Culture - Preliminary No growth in 4 days 05/08/18 23:30 Blood - Peripheral Anaerobic Blood Culture - Preliminary No growth in 4 days 05/09/18 11:05 Wound - Foot Gram Stain - Final 05/09/18 11:05 Wound - Foot Wound Culture - Final Enterobacter cloacae Assessment and Plan - Assessment (1) Cellulitis of left foot Code(s): L03.116 - Cellulitis of left lower limb Status: Acute - Plan Santyl wound care to be changed daily. Ordered home health for daily bandage changes once discharged. Appreciate ID, FU out pt [address] Putnam- surgeon.
[2018-05-12] MEDS: glipiZIDE 10 MG Tablet PO SCH (21:47)
[2018-05-13 07:39] LABS: Baso # (Auto) 0.1 th/mm3 (0.0-0.2); Baso % (Auto) 1.2 % (0.0-2.0); Eos # (Auto) 0.6 th/mm3 (0.0-0.4); Eos % (Auto) 4.6 % (0.0-4.0); Hematocrit 43.3 % (39.0-51.0); Lymph % (Auto) 23.9 % (9.0-44.0); Mean Corpuscular HGB Conc 34.7 % (32.0-36.0); Mean Corpuscular Hemoglobin 33.4 pg (27.0-34.0); Mean Corpuscular Volume 96.5 fL (80.0-100.0); Mono # (Auto) 1.4 th/mm3 (0.0-0.9); Neut # (Auto) 7.5 th/mm3 (1.8-7.7); Neut % (Auto) 59.3 % (16.0-70.0); Platelet Count 441 th/mm3 (150-450); Red Blood Count 4.49 mil/mm3 (4.50-5.90); Red Cell Distribution Width 13.9 % (11.6-17.2); White Blood Count 12.6 th/mm3 (4.0-11.0)
[2018-05-13 08:13] LABS: Albumin 3.2 g/dL (3.4-5.0); Anion Gap 11 meq/L (5-15); Blood Urea Nitrogen 17 mg/dL (7-18); Calcium 8.6 mg/dL (8.5-10.1); Carbon Dioxide 24.6 meq/L (21.0-32.0); Chloride 107 meq/L (98-107); Glomerular Filtration Rate 67 mL/min (>89); Glucose,Random 93 mg/dL (74-106); Magnesium 2.4 mg/dL (1.5-2.5); Sodium 143 meq/L (136-145)
[2018-05-13 08:14] LABS: Alanine Aminotransferase 29 U/L (12-78); Aspartate Aminotransferase 21 U/L (15-37); Phosphorus 2.6 mg/dL (2.5-4.9)
[2018-05-13 08:16] LABS: Alkaline Phosphatase 42 U/L (45-117); Total Protein 6.7 g/dL (6.4-8.2)
[2018-05-13 08:18] LABS: Howell-Jolly Bodies Present
[2018-05-13] MEDS: Collagenase Oint 30 GM Tube TOPICAL SCH (09:00)
[2018-05-13] MEDS: Lisinopril 20 MG Tablet PO SCH (09:11)
[2018-05-13] MEDS: Ascorbic Acid 500 MG Tablet PO SCH (09:12)
[2018-05-13] MEDS: hydroCHLOROthiazide 25 MG Tablet PO SCH (09:12)
[2018-05-13] MEDS: amLODIPine 5 MG Tablet PO SCH (09:12)
--- NOTE | 2018-05-13 16:13 | P.PNIM ---
Subjective Interval history: This is a 77-year-old male with a PMH of HTN and DM who was referred to the ER by his Packaging Sales Representative, Dr. Putnam for admission due to postop left foot infection. Pt underwent Bunionectomy 04/03/18, states he has been on multiple antibiotic regimens since surgery for wound infection w/ minimal improvement, was referred to the ER for admission and IV Abx. Reports pain to left foot, worse w/ walking or wearing boot, pain is intermittent, moderate to severe, 8/10 , non-radiating. Denies fever or chills. On arrival, BP 129/71, HR 83, O2 sat 95% on RA, Afebrile. WBC 14.2. K+ 3.2. Creatinine 1.35, no previous labs for comparison. Foot X-ray with postsurgical changes, no acute fracture. Reports no significant pain. Dr. Griffiths came in and saw him this morning. Wants to eat breakfast and take his morning medications. No other concerns at this time. No fevers or chills overnight. 7-14 D/W Dr. Griffiths who is recommending likely care home IV antibiotics with no hardware removal at this time. Will need a PICC line placed when final blood cultures are negative. Will await final ID recommendations. Await final wound cultures. REFUSING LOVENOX AT THIS TIME 7-15 AWAIT CULTURES AND SENSITIVITIES- SUSPECT GRAM NEGATIVE RODS CANDACE RN AND PT SEEN BY ID AND PODIATRY AM LABS 7-16 AWAIT CULTURES AND SENSITIVITIES- WILL NEED ID AND PODIATRY CLEARANCE WILL PROBABLY NEED A PICC LINE AM LABS CANDACE RN AND PT 7-17 PICC LINE PLACED TO GO HOME TOMORROW AND HAVE 6 WEEKS OF ROCEPHIN DAILY CANDACE RN AND PT AND CM WILL DO FACE TO FACE CAN DC TOMORROW WITH [facility] Physical Exam Vital signs: Vital Signs 05/12/18 17:54 05/12/18 20:00 05/13/18 00:00 Temperature 98.1 F 97.8 F 97.9 F Pulse Rate 79 90 75 Respiratory Rate 18 18 16 Blood Pressure 156/82 H 131/78 124/60 Pulse Oximetry 96 97 96 05/13/18 04:00 05/13/18 08:00 05/13/18 12:00 Temperature 97.9 F 98.2 F 98.2 F Pulse Rate 71 104 H 76 Respiratory Rate 14 18 18 Blood Pressure 120/59 L 143/79 H 136/79 Pulse Oximetry 95 96 96 Intake & Output 05/12/18 05/13/18 05/13/18 18:59 06:59 18:59 Intake Total 1200 / 1200 Balance 1200 / 1200 Weight 89.9 kg Intake: Oral 1200 / 1200 Other: # Voids 4 Date of Last Bowel Movement 05/11/18 05/11/18 # Bowel Movements 1 Narrative: GENERAL: This is a well-nourished, well-developed patient, in no apparent distress. CARDIOVASCULAR: Regular rate and rhythm RESPIRATORY: Clear to auscultation. Breath sounds equal bilaterally. No wheezes , rales, or rhonchi. GASTROINTESTINAL: Abdomen soft, non-tender, nondistended. Normal active bowel sounds MUSCULOSKELETAL: Left foot surgical scar wound over surgical bunion area 2 cm x 2 cm wound along with second metatarsal with no active drainage, no significant erythema seen, clinically improving. NEURO: Alert & Oriented x4 to person, place, time, situation. Moves all ext x4 Results - Labs CBC & Chem 7: 05/13/18 06:00 05/13/18 06:00 Laboratory Results - last 24 hr 05/12/18 05/12/18 05/12/18 06:24 18:23 21:42 WBC RBC Hgb Hct MCV MCH MCHC RDW Plt Count MPV Prelim Diff (Auto) Neut % (Auto) Lymph % (Auto) [place] % (Auto) Eos % (Auto) Baso % (Auto) Neut # (Auto) Lymph # (Auto) [place] # (Auto) Eos # (Auto) Baso # (Auto) WBC Differential Diff Scan Differential Comment Platelet Morphology [place] Bodies Sodium Potassium Chloride Carbon Dioxide Anion Gap BUN Creatinine Estimated GFR POC Glucose 132 H 134 H Random Glucose Hemoglobin A1c 6.3 H Calcium Phosphorus Magnesium Total Bilirubin AST ALT Alkaline Phosphatase Total Protein Albumin 05/13/18 05/13/18 05/13/18 06:00 06:00 09:09 WBC 12.6 H RBC 4.49 L Hgb 15.0 Hct 43.3 MCV 96.5 MCH 33.4 MCHC 34.7 RDW 13.9 Plt Count 441 MPV 9.0 Prelim Diff (Auto) Slide review pending Neut % (Auto) 59.3 Lymph % (Auto) 23.9 [place] % (Auto) 11.0 H Eos % (Auto) 4.6 H Baso % (Auto) 1.2 Neut # (Auto) 7.5 Lymph # (Auto) 3.0 [place] # (Auto) 1.4 H Eos # (Auto) 0.6 H Baso # (Auto) 0.1 WBC Differential . Diff Scan Auto diff confirmed Differential Comment . Platelet Morphology Enlarged H [place] Bodies Present H Sodium 143 Potassium 3.0 L Chloride 107 Carbon Dioxide 24.6 Anion Gap 11 BUN 17 Creatinine 1.07 Estimated GFR 67 L POC Glucose 143 H Random Glucose 93 Hemoglobin A1c Calcium 8.6 Phosphorus 2.6 Magnesium 2.4 Total Bilirubin 0.5 AST 21 ALT 29 Alkaline Phosphatase 42 L Total Protein 6.7 D Albumin 3.2 L 05/13/18 12:44 WBC RBC Hgb Hct MCV MCH MCHC RDW Plt Count MPV Prelim Diff (Auto) Neut % (Auto) Lymph % (Auto) [place] % (Auto) Eos % (Auto) Baso % (Auto) Neut # (Auto) Lymph # (Auto) [place] # (Auto) Eos # (Auto) Baso # (Auto) WBC Differential Diff Scan Differential Comment Platelet Morphology [place] Bodies Sodium Potassium Chloride Carbon Dioxide Anion Gap BUN Creatinine Estimated GFR POC Glucose 156 H Random Glucose Hemoglobin A1c Calcium Phosphorus Magnesium Total Bilirubin AST ALT Alkaline Phosphatase Total Protein Albumin Microbiology 05/08/18 23:40 Blood - Peripheral Aerobic Blood Culture - Final No growth in 5 days 05/08/18 23:40 Blood - Peripheral Anaerobic Blood Culture - Final No growth in 5 days 05/08/18 23:30 Blood - Peripheral Aerobic Blood Culture - Final No growth in 5 days 05/08/18 23:30 Blood - Peripheral Anaerobic Blood Culture - Final No growth in 5 days - Procedures NONE Assessment and Plan - Assessment (1) Left foot infection Code(s): L08.9 - Local infection of the skin and subcutaneous tissue, unspecified Status: Acute (2) DM (diabetes mellitus) Code(s): E11.9 - Type 2 diabetes mellitus without complications Status: Acute (3) Renal insufficiency Code(s): N28.9 - Disorder of kidney and ureter, unspecified Status: Acute - Plan 1. Left Foot postoperative infection: s/p Left Bunionectomy 04/03/[address] Putnam, w/ ongoing infection, failed outpatient on multiple antibiotics, sent to ER by Dr. Putnam for admission, continue with IV Abx, Vanco/Azactam, seen by Dr. Griffiths who will hold off on surgical intervention at this time and follow the patient clinically for next 48 hours on IV antibiotics. Follow-up with wound and blood cultures. AWAIT SENSITIVITIES---NEEDS 6 WEEKS OF ROCEPHIN IV AND CONTINUE CURRENT WOUND CARE WITH SANTYL DAILY AND BANDAGE CHANGES DAILY 2. DM type II with diabetic foot infection: Sliding scale w/ Accu-Cheks, hold Metformin for now. Overall fair control 3. Renal Insufficiency with suspecting chronic kidney disease stage III: Creatinine 1.35, no previous labs for comparison, monitor I/O, avoid nephrotoxins 4. DVT Prophylaxis: Lovenox, patient declining 5. Hypokalemiasupplement REPLACE AGAIN ANTIBIOTICS PER ID AM LABS REPLACE POTASSIUM DC TO HOME TOMORROW Code Status: FULL CODE Discussed Condition With: CANDACE RN AND PT Discharge Planning: DC TO HOME TOMORROW HAS PICC AND IV ANTIBIOTICS SET UP NOW (2) DM (diabetes mellitus) Qualifiers: Diabetes mellitus type: type 2 Diabetes mellitus half-way insulin use: without intermediate project manager use Diabetes mellitus complication status: with skin complications Diabetes mellitus complication detail: with foot ulcer Qualified Code(s): E11.621 - Type 2 diabetes mellitus with foot ulcer; L97.509 - Non-pressure chronic ulcer of other part of unspecified foot with unspecified severity
--- NOTE | 2018-05-13 16:15 | P.DCO ---
- Diagnosis (2) DM (diabetes mellitus) - Home Health Nursing Order: Medication education-adverse effect, Wound care and dressing changes ( WITH SANTYL AND DAILY DRESSING CHANGES), IV medication administration - Case Management Consult Yes - Certification I have seen patient Rowena Abreu on 05/13/18. My clinical findings support the need for the requested home health care services because: Limited mobility due to disease progression, High risk of falls, Injectable medication education/administration I certify that my clinical findings support that this patient is homebound because: Unsteady gait/balance, Non-ambulatory: confined to bed or chair (2) DM (diabetes mellitus) Qualifiers: Diabetes mellitus type: type 2 Diabetes mellitus half-way insulin use: without extermination inspector use Diabetes mellitus complication status: with skin complications Diabetes mellitus complication detail: with foot ulcer Qualified Code(s): E11.621 - Type 2 diabetes mellitus with foot ulcer; L97.509 - Non-pressure chronic ulcer of other part of unspecified foot with unspecified severity
--- NOTE | 2018-05-13 16:29 | P.DS ---
Date of admission: 05/09/18 01:02 Primary care physician: Colleen Dumont MD Attending physician on discharge: Chi Goldman Anticipated date of discharge: 05/14/18 Brief History from admission: This is a 77-year-old male with a PMH of HTN and DM who was referred to the ER by his [employer], Dr. Putnam for admission due to postop left foot infection. Pt underwent Bunionectomy 04/03/18, states he has been on multiple antibiotic regimens since surgery for wound infection w/ minimal improvement, was referred to the ER for admission and IV Abx. Reports pain to left foot, worse w/ walking or wearing boot, pain is intermittent, moderate to severe, 8/10 , non-radiating. Denies fever or chills. On arrival, BP 129/71, HR 83, O2 sat 95% on RA, Afebrile. WBC 14.2. K+ 3.2. Creatinine 1.35, no previous labs for comparison. Foot X-ray with postsurgical changes, no acute fracture. DS: Diagnosis - Discharge Diagnosis (1) Cellulitis of left foot Status: Acute (2) DM (diabetes mellitus) Status: Chronic (3) Left foot infection Status: Acute (4) Renal insufficiency Status: Chronic DS: Medications - Discharge Medications Prescriptions: collagenase clostridium histo. [Santyl] 1 applicatio TOPICAL DAILY #100 g hydrocodone-acetaminophen 1 tab PO Q4H PRN #12 tab PRN Reason: PAIN 6 TO 10 sennosides-docusate sodium [Senna Plus] 1 tab PO BID #60 tab DS: Summary Hospital Course: This is a 77-year-old male with a PMH of HTN and DM who was referred to the ER by his [employer], Dr. Putnam for admission due to postop left foot infection. Pt underwent Bunionectomy 04/03/18, states he has been on multiple antibiotic regimens since surgery for wound infection w/ minimal improvement, was referred to the ER for admission and IV Abx. Reports pain to left foot, worse w/ walking or wearing boot, pain is intermittent, moderate to severe, 8/10 , non-radiating. Denies fever or chills. On arrival, BP 129/71, HR 83, O2 sat 95% on RA, Afebrile. WBC 14.2. K+ 3.2. Creatinine 1.35, no previous labs for comparison. Foot X-ray with postsurgical changes, no acute fracture. Reports no significant pain. Dr. Menendez came in and saw him this morning. Wants to eat breakfast and take his morning medications. No other concerns at this time. No fevers or chills overnight. 7-14 D/W Dr. Menendez who is recommending likely fpc IV antibiotics with no hardware removal at this time. Will need a PICC line placed when final blood cultures are negative. Will await final ID recommendations. Await final wound cultures. REFUSING LOVENOX AT THIS TIME 715 AWAIT CULTURES AND SENSITIVITIES- SUSPECT GRAM NEGATIVE RODS DW RN AND PT SEEN BY ID AND PODIATRY AM LABS 05-12 AWAIT CULTURES AND SENSITIVITIES- WILL NEED ID AND PODIATRY CLEARANCE WILL PROBABLY NEED A PICC LINE AM LABS CANDACE RN AND PT 05-13 PICC LINE PLACED TO GO HOME TOMORROW AND HAVE 6 WEEKS OF ROCEPHIN DAILY CANDACE RN AND PT AND CM WILL DO FACE TO FACE CAN DC TOMORROW WITH [facility] e-forcse reviewed has had a hydrocodone-acetaminophen 5/325mg on 04-[address] ISLAS 30 TABLETS WILL GIVE 12 TABLETS AT DISCHARGE - Time Spent with Patient Total time spent providing and/or coordinating discharge services: Greater than 30 minutes - Quality: VTE Deep Vein Thrombosis/Pulmonary Embolism Present on Admission: No Exam Vital signs: Vital Signs 05/12/18 17:54 05/12/18 20:00 05/13/18 00:00 Temperature 98.1 F 97.8 F 97.9 F Pulse Rate 79 90 75 Respiratory Rate 18 18 16 Blood Pressure 156/82 H 131/78 124/60 Pulse Oximetry 96 97 96 05/13/18 04:00 05/13/18 08:00 05/13/18 12:00 Temperature 97.9 F 98.2 F 98.2 F Pulse Rate 71 104 H 76 Respiratory Rate 14 18 18 Blood Pressure 120/59 L 143/79 H 136/79 Pulse Oximetry 95 96 96 Intake & Output 05/12/18 05/13/18 05/13/18 18:59 06:59 18:59 Intake Total 1200 / 1200 Balance 1200 / 1200 Weight 89.9 kg Intake: Oral 1200 / 1200 Other: # Voids 4 Date of Last Bowel Movement 05/11/18 05/11/18 # Bowel Movements 1 Narrative: GENERAL: This is a well-nourished, well-developed patient, in no apparent distress. CARDIOVASCULAR: Regular rate and rhythm RESPIRATORY: Clear to auscultation. Breath sounds equal bilaterally. No wheezes , rales, or rhonchi. GASTROINTESTINAL: Abdomen soft, non-tender, nondistended. Normal active bowel sounds MUSCULOSKELETAL: Left foot surgical scar wound over surgical bunion area 2 cm x 2 cm wound along with second metatarsal with no active drainage, no significant erythema seen, clinically improving. NEURO: Alert & Oriented x4 to person, place, time, situation. Moves all ext x4 Results Procedures completed during hospitalization: NONE Labs on day of discharge: Labs from last 24 hours 05/13/18 05/13/18 05/13/18 12:44 09:09 06:00 WBC RBC Hgb Hct MCV MCH MCHC RDW Plt Count MPV Prelim Diff (Auto) Neut % (Auto) Lymph % (Auto) [place] % (Auto) Eos % (Auto) Baso % (Auto) Neut # (Auto) Lymph # (Auto) [place] # (Auto) Eos # (Auto) Baso # (Auto) WBC Differential Diff Scan Differential Comment Platelet Morphology [place] Bodies Sodium 143 Potassium 3.0 L Chloride 107 Carbon Dioxide 24.6 Anion Gap 11 BUN 17 Creatinine 1.07 Estimated GFR 67 L POC Glucose 156 H 143 H Random Glucose 93 Hemoglobin A1c Calcium 8.6 Phosphorus 2.6 Magnesium 2.4 Total Bilirubin 0.5 AST 21 ALT 29 Alkaline Phosphatase 42 L Total Protein 6.7 D Albumin 3.2 L 05/13/18 05/12/18 05/12/18 06:00 21:42 18:23 WBC 12.6 H RBC 4.49 L Hgb 15.0 Hct 43.3 MCV 96.5 MCH 33.4 MCHC 34.7 RDW 13.9 Plt Count 441 MPV 9.0 Prelim Diff (Auto) Slide review pending Neut % (Auto) 59.3 Lymph % (Auto) 23.9 [place] % (Auto) 11.0 H Eos % (Auto) 4.6 H Baso % (Auto) 1.2 Neut # (Auto) 7.5 Lymph # (Auto) 3.0 [place] # (Auto) 1.4 H Eos # (Auto) 0.6 H Baso # (Auto) 0.1 WBC Differential . Diff Scan Auto diff confirmed Differential Comment . Platelet Morphology Enlarged H [place] Bodies Present H Sodium Potassium Chloride Carbon Dioxide Anion Gap BUN Creatinine Estimated GFR POC Glucose 134 H 132 H Random Glucose Hemoglobin A1c Calcium Phosphorus Magnesium Total Bilirubin AST ALT Alkaline Phosphatase Total Protein Albumin 05/12/18 06:24 WBC RBC Hgb Hct MCV MCH MCHC RDW Plt Count MPV Prelim Diff (Auto) Neut % (Auto) Lymph % (Auto) [place] % (Auto) Eos % (Auto) Baso % (Auto) Neut # (Auto) Lymph # (Auto) [place] # (Auto) Eos # (Auto) Baso # (Auto) WBC Differential Diff Scan Differential Comment Platelet Morphology [place] Bodies Sodium Potassium Chloride Carbon Dioxide Anion Gap BUN Creatinine Estimated GFR POC Glucose Random Glucose Hemoglobin A1c 6.3 H Calcium Phosphorus Magnesium Total Bilirubin AST ALT Alkaline Phosphatase Total Protein Albumin - Impressions ITS Impressions Foot X-Ray 05/08/18 23:57 CONCLUSION: Postsurgical changes. No fracture Discharge Plan - Discharge Disposition Patient Disposition: /Home Health Service - Discharge Condition Condition: Good - Discharge Order Discharge Orders: Discharge Order (Routine); Ordered 05/13/18 Ordered By: Chi Goldman - Discharge Details Anticipated Discharge Date: 05/14/18 - Physicians Team Primary Care Provider: Colleen Dumont Attending Provider: Chi Goldman Other Providers: Marvin Diaz MD ; Brian Menendez DPM ; [employer] ; [facility]
[2018-05-13] MEDS: Insulin NovoLOG Aspart Correctional Sugar Inj SQ SCH ×3 (20:01→22:23)
[2018-05-13] MEDS: Senna/Docusate Sodium 8.6/50 MG Tablet PO SCH ×2 (20:04→21:14)
[2018-05-13] MEDS: Enoxaparin Inj 40 MG/0.4 ML Syringe SQ SCH (20:05)
[2018-05-13] MEDS: glipiZIDE 10 MG Tablet PO SCH (21:14)
[2018-05-14] MEDS: Insulin NovoLOG Aspart Correctional Sugar Inj SQ SCH ×2 (08:40→13:09)
[2018-05-14] MEDS: Senna/Docusate Sodium 8.6/50 MG Tablet PO SCH (08:43)
[2018-05-14] MEDS: Lisinopril 20 MG Tablet PO SCH (08:43)
[2018-05-14] MEDS: Collagenase Oint 30 GM Tube TOPICAL SCH (08:44)
[2018-05-14] MEDS: amLODIPine 5 MG Tablet PO SCH (08:44)
[2018-05-14] MEDS: hydroCHLOROthiazide 25 MG Tablet PO SCH (08:44)
[2018-05-14] MEDS: Ascorbic Acid 500 MG Tablet PO SCH (08:44)
[2018-05-14] MEDS ORDERED: Potassium Chloride 10 MEQ ER Capsule PO ONE (08:53)
[2018-05-14] MEDS: Enoxaparin Inj 40 MG/0.4 ML Syringe SQ SCH (10:48)
--- NOTE | 2018-05-14 12:15 | P.PNIM ---
Subjective Interval history: This is a 77-year-old male with a PMH of HTN and DM who was referred to the ER by his [employer], Dr. Putnam for admission due to postop left foot infection. Pt underwent Bunionectomy 04/03/18, states he has been on multiple antibiotic regimens since surgery for wound infection w/ minimal improvement, was referred to the ER for admission and IV Abx. Reports pain to left foot, worse w/ walking or wearing boot, pain is intermittent, moderate to severe, 8/10 , non-radiating. Denies fever or chills. On arrival, BP 129/71, HR 83, O2 sat 95% on RA, Afebrile. WBC 14.2. K+ 3.2. Creatinine 1.35, no previous labs for comparison. Foot X-ray with postsurgical changes, no acute fracture. Reports no significant pain. Dr. Griffiths came in and saw him this morning. Wants to eat breakfast and take his morning medications. No other concerns at this time. No fevers or chills overnight. 7-14 D/W Dr. Griffiths who is recommending likely detention IV antibiotics with no hardware removal at this time. Will need a PICC line placed when final blood cultures are negative. Will await final ID recommendations. Await final wound cultures. REFUSING LOVENOX AT THIS TIME 7-15 AWAIT CULTURES AND SENSITIVITIES- SUSPECT GRAM NEGATIVE RODS DW RN AND PT SEEN BY ID AND PODIATRY AM LABS 7-16 AWAIT CULTURES AND SENSITIVITIES- WILL NEED ID AND PODIATRY CLEARANCE WILL PROBABLY NEED A PICC LINE AM LABS CANDACE RN AND PT 717 PICC LINE PLACED TO GO HOME TOMORROW AND HAVE 6 WEEKS OF ROCEPHIN DAILY CANDACE RN AND PT AND CM WILL DO FACE TO FACE CAN DC TOMORROW WITH [facility] 05-14 TO GO HOME TODAY ON ROCEPHIN 2GRAMS IV DAILY FOR 6 WEEKS CANDACE RN AND PT AND CM AND FAMILY DC HOME WITH [facility] Physical Exam Vital signs: Vital Signs 05/13/18 16:00 05/13/18 20:00 05/14/18 00:00 Temperature 98.2 F 98.1 F 98.0 F Pulse Rate 74 79 67 Respiratory Rate 18 18 16 Blood Pressure 137/78 131/79 130/70 Pulse Oximetry 97 97 97 05/14/18 04:00 05/14/18 08:00 Temperature 98.0 F 98.1 F Pulse Rate 65 65 Respiratory Rate 14 17 Blood Pressure 121/74 140/84 Pulse Oximetry 95 96 Intake & Output 05/13/18 05/14/18 05/14/18 18:59 06:59 18:59 Intake Total 100 / 100 Output Total 300 / 300 Balance -200 / -200 Weight 89.9 kg Intake: IV 100 / 100 Rocephin Inj 2,000 MG In NS Inj 100 / 100 100 ML @ 200 mls/hr IV.SIG Q24H RUBEN Rx#:[id number] Output: Urine 300 / 300 Other: # Voids 3 1 Date of Last Bowel Movement 05/11/18 05/11/18 05/11/18 Narrative: GENERAL: This is a well-nourished, well-developed patient, in no apparent distress. CARDIOVASCULAR: Regular rate and rhythm RESPIRATORY: Clear to auscultation. Breath sounds equal bilaterally. No wheezes , rales, or rhonchi. GASTROINTESTINAL: Abdomen soft, non-tender, nondistended. Normal active bowel sounds MUSCULOSKELETAL: Left foot surgical scar wound over surgical bunion area 2 cm x 2 cm wound along with second metatarsal with no active drainage, no significant erythema seen, clinically improving. NEURO: Alert & Oriented x4 to person, place, time, situation. Moves all ext x4 Results - Labs CBC & Chem 7: 05/13/18 06:00 05/13/18 06:00 Laboratory Results - last 24 hr 05/13/18 05/13/18 05/13/18 12:44 18:32 20:52 POC Glucose 156 H 142 H 172 H 05/14/18 08:23 POC Glucose 169 H Microbiology 05/08/18 23:40 Blood - Peripheral Aerobic Blood Culture - Final No growth in 5 days 05/08/18 23:40 Blood - Peripheral Anaerobic Blood Culture - Final No growth in 5 days 05/08/18 23:30 Blood - Peripheral Aerobic Blood Culture - Final No growth in 5 days 05/08/18 23:30 Blood - Peripheral Anaerobic Blood Culture - Final No growth in 5 days - Imaging Foot X-Ray 05/08/18 23:57 CONCLUSION: Postsurgical changes. No fracture - Procedures NONE Assessment and Plan - Assessment (1) Cellulitis of left foot Code(s): L03.116 - Cellulitis of left lower limb Status: Acute (2) DM (diabetes mellitus) Code(s): E11.9 - Type 2 diabetes mellitus without complications Status: Chronic (3) Left foot infection Code(s): L08.9 - Local infection of the skin and subcutaneous tissue, unspecified Status: Acute (4) Renal insufficiency Code(s): N28.9 - Disorder of kidney and ureter, unspecified Status: Chronic - Plan 1. Left Foot postoperative infection: s/p Left Bunionectomy 04/03/[address] Putnam, w/ ongoing infection, failed outpatient on multiple antibiotics, sent to ER by Dr. Putnam for admission, continue with IV Abx, Vanco/Azactam, seen by Dr. Griffiths who will hold off on surgical intervention at this time and follow the patient clinically for next 48 hours on IV antibiotics. Follow-up with wound and blood cultures. AWAIT SENSITIVITIES---NEEDS 6 WEEKS OF ROCEPHIN IV AND CONTINUE CURRENT WOUND CARE WITH SANTYL DAILY AND BANDAGE CHANGES DAILY 2. DM type II with diabetic foot infection: Sliding scale w/ Accu-Cheks, hold Metformin for now. Overall fair control 3. Renal Insufficiency with suspecting chronic kidney disease stage III: Creatinine 1.35, no previous labs for comparison, monitor I/O, avoid nephrotoxins 4. DVT Prophylaxis: Lovenox, patient declining 5. Hypokalemiasupplement REPLACE AGAIN ANTIBIOTICS PER ID AM LABS REPLACE POTASSIUM DC TO HOME TODAY Code Status: FULL CODE Discussed Condition With: PATIENT AND RN AND CM AND FAMILY Discharge Planning: DC TO HOME TOMORROW HAS PICC AND IV ANTIBIOTICS SET UP NOW (2) DM (diabetes mellitus) Qualifiers: Diabetes mellitus type: type 2 Diabetes mellitus penitentiary insulin use: without penitentiary use Diabetes mellitus complication status: with skin complications Diabetes mellitus complication detail: with foot ulcer Qualified Code(s): E11.621 - Type 2 diabetes mellitus with foot ulcer; L97.509 - Non-pressure chronic ulcer of other part of unspecified foot with unspecified severity
[2018-05-15] MEDS ORDERED: Pharmacy Ordered Lab Info OTHER ONE (01:45)
== END 2018-05-14 14:17 | disposition home or self-care (01) ==
LOC: NEPE 17:53 → NEDA 05-09 01:02 → NEDH 05-09 04:01 → N03 05-09 14:50
PROVIDERS: ADMIT Hospitalist; ATTEND Hospitalist